=== PATIENT | male | born 2000 | race Caucasian/White ===

== ENCOUNTER 2024-10-12 23:01 | Emergency (ER) | payer SELFPAY ==
[2024-10-12 23:25] VITALS: BP 143/87; PULSE 89; TEMP 36.9; O2SAT 99; BMI 33.0
--- NOTE | 2024-10-12 23:33 | ED.LOWEXI1 ---
HPI HPI - Extremity Injury (Lower) General Chief Complaint: Extremity Injury, Lower Stated Complaint: LE PAIN Time Seen by Provider: 10/12/24 23:29 Source: patient Mode of arrival: Wheelchair Limitations: no limitations History of Present Illness HPI Narrative: states he was walking about an hour ago and twist his left ankle. Was able to catch himself to prevent him from falling . Presents with ankle pain. States he is suppose to wear braces on his ankles but was not wearing them Related Data Home Medications �Medication �Instructions �Recorded �Confirmed No Known Home Medications 10/12/24 10/12/24 Allergies Allergy/AdvReac Type Severity Reaction Status Date / Time No Known Drug Allergies Allergy Verified 10/12/24 23:28 Opioid HPI Opioid Management Most Recent Pain and Opioid Data: Last Pain Scale 10 Today, 00:00 Last ED Pain Assessment 10/12/24, 23:40 Last MAR Pain Assessment Today, 00:00 Review of Systems ROS Status of ROS 10 or more systems reviewed and unremarkable except as noted in history and below [facility] Medical History (Updated 10/13/24 @ 00:24 by Jorge Wilkins MD) Asthma �J45.909 - Unspecified asthma, uncomplicated (ICD-10) Social History Little interest or pleasure in doing things: not at all Feeling down, depressed, or hopeless: not at all Exam Constitutional Vital Signs, click to edit/add: Last Vital Signs Temp 98.5 F 10/12/24 23:25 Pulse 89 10/12/24 23:25 Resp 16 10/12/24 23:25 BP 143/87 H 10/12/24 23:25 Pulse Ox 99 10/12/24 23:25 O2 Del Method Room Air 10/12/24 23:25 Common normals: no apparent distress, average body habitus, oriented x3, no limitations, healthy appearing and alert [facility] Common normals: normocephalic and head/scalp atraumatic Respiratory Common normals: normal respiratory effort, no retractions, no use of accessory muscles and clear to auscultation bilaterally Cardio Common normals: regular rate, regular rhythm, S1 normal heart sound and S2 normal heart sound Extremity Extremity image (front):  1. tender with mild swelling Neuro Common normals: oriented x3, CN's II-XII intact bilaterally, moves all extremities and no focal motor deficits Psych Appearance: grossly normal Course Vital Signs Vital signs: Vital Signs Temperature 98.5 F 10/12/24 23:25 Pulse Rate 89 10/12/24 23:25 Respiratory Rate 16 10/12/24 23:25 Blood Pressure 143/87 H 10/12/24 23:25 Pulse Oximetry 99 10/12/24 23:25 Oxygen Delivery Method Room Air 10/12/24 23:25 Temperature 98.5 F 10/12/24 23:25 Pulse Rate 89 10/12/24 23:25 Respiratory Rate 16 10/12/24 23:25 Blood Pressure 143/87 H 10/12/24 23:25 Pulse Oximetry 99 10/12/24 23:25 Oxygen Delivery Method Room Air 10/12/24 23:25 MDM - Extremity Injury (Lower) MDM Narrative Medical decision making narrative: patient walking and twisted his left ankle. Is suppose to wear a brace to support his ankles but non compliant. Mild swelling of the ankle. xray left ankle and foot per my preliminary review is neg. patient placed in CAM boot and crutches and discharged home Discharge Plan Discharge Chief Complaint: Extremity Injury, Lower Clinical Impression: Ankle sprain and strain Patient Disposition: Home, Self-Care Prescriptions / Home Meds: No Action No Known Home Medications Print Language: Panamanian Instructions: Ankle Strain (ED) Additional Instructions: follow up with your doctor for recheck next week. Use ibuprofen or similar for pain Referrals: Physician,Non-Staff, MD [Primary Care Provider] - 1 week
[2024-10-13] MEDS: IBUPROFEN 400 MG TABLET 800 MG PO
== END 2024-10-13 00:38 | disposition home or self-care (01) ==
PROVIDERS: Emergency Provider Internal Medicine
DX: S93.402A Sprain of unspecified ligament of left ankle, initial encounter (principal); S96.912A Strain of unspecified muscle and tendon at ankle and foot level, left foot, initial encounter; X50.1XXA Overexertion from prolonged static or awkward postures, initial encounter; Z91.199 Patient's noncompliance with other medical treatment and regimen due to unspecified reason
CPT/HCPCS: 73610; 73630; 99283

== ENCOUNTER 2024-10-25 21:22 | Emergency (ER) | payer SELFPAY ==
[2024-10-25 21:25] VITALS: BP 144/74; PULSE 70; TEMP 36.9; O2SAT 100; BMI 33.2
--- NOTE | 2024-10-25 21:35 | XR_ITS ---
[facility] [place] [address] Patient Name: ANNEL CHAVES MRN: [id number] date: 2000 Sex: M Assigned Patient Location: ER Current Patient Location: ER Accession/Order Number: [id number] Exam Date: 10/25/2024 22:08 Report Date: 10/25/2024 22:09 At the request of: VON FAULKNER Procedure: XR wrist LT min 3V XR wrist LT min 3V 10/25/2024 9:50 PM SIGNS AND SYMPTOMS: ^fall, left wrist injury and pain PROTOCOL: Frontal, lateral, and oblique radiographs of the left wrist COMPARISON: None FINDINGS: The bones are in anatomic alignment. There is no evidence of acute displaced fracture. No soft tissue swelling. Radiocarpal joint and carpal rows are preserved. XR/XR wrist LT min 3V IMPRESSION: No fracture. Impression dictated by: Saud Arzate M.D. 10/25/2024 10:09 PM Dictation Location: [place] [address] Electronically authenticated by: [id number] Y Date: 10/25/2024 22:09
[2024-10-25] MEDS: IBUPROFEN 400 MG TABLET 800 MG PO (21:54)
--- NOTE | 2024-10-25 22:11 | ED.UPPEXIN1 ---
HPI HPI - Extremity Injury (Upper) General Chief Complaint: Extremity Injury, Upper Stated Complaint: LEFT WRIST HURTS Time Seen by Provider: 10/25/24 21:28 Source: patient Mode of arrival: walk-in Limitations: no limitations History of Present Illness HPI narrative: cc - left wrist injury Pt fell and tried to use his left wrist to break the fall. He complains of pain throughout the left wrist joint. No meds taken prior to arrival - this just occurred. No left shoulder, upper arm, elbow, forearm or hand pain. No injury to the head, neck , torso or any other extremities. Related Data Home Medications ?Medication ?Instructions ?Recorded ?Confirmed No Known Home Medications 10/12/24 10/25/24 Allergies Allergy/AdvReac Type Severity Reaction Status Date / Time No Known Drug Allergies Allergy Verified 10/25/24 21:30 Opioid HPI Opioid Management Most Recent Pain and Opioid Data: Last Pain Scale 10 Today, 21:54 Last MAR Pain Assessment Today, 21:54 [facility] Medical History (Updated 10/25/24 @ 22:14 by Titus Hart) Asthma ?J45.909 - Unspecified asthma, uncomplicated (ICD-10) Social History Little interest or pleasure in doing things: not at all Feeling down, depressed, or hopeless: not at all Exam Narrative Exam Narrative: Nurses note and vital signs reviewed and patient is not hypoxic. afebrile General: The patient appears well and in no apparent distress. Patient is resting comfortably on cart. GCS = 15. Skin: Warm, dry, no pallor noted. Cardiovascular: Normal peripheral perfusion Respiratory: Patient is in no distress, no accessory muscle use, no wheezing or increased work of breathing Musculoskeletal: Tenderness throughout the left wrist joint. No swelling is noted. He has normal range of motion of the fingers of the left hand. The remainder the left upper extremity is normal. no additional sign of long bone fracture. Neurological: A&O x4, normal equal tare weigher strength, normal finger to nose, normal speech, normal coordination, normal motor, normal sensory. Psychiatric: Cooperative Constitutional Vital Signs, click to edit/add: Last Vital Signs Temp 98.4 F 10/25/24 21:25 Pulse 70 10/25/24 21:25 Resp 20 10/25/24 21:25 BP 144/74 H 10/25/24 21:25 Pulse Ox 100 10/25/24 21:25 O2 Del Method Room Air 10/25/24 21:25 Course Vital Signs Vital signs: Vital Signs Temperature 98.4 F 10/25/24 21:25 Pulse Rate 70 10/25/24 21:25 Respiratory Rate 20 10/25/24 21:25 Blood Pressure 144/74 H 10/25/24 21:25 Pulse Oximetry 100 10/25/24 21:25 Oxygen Delivery Method Room Air 10/25/24 21:25 Temperature 98.4 F 10/25/24 21:25 Pulse Rate 70 10/25/24 21:25 Respiratory Rate 20 10/25/24 21:25 Blood Pressure 144/74 H 10/25/24 21:25 Pulse Oximetry 100 10/25/24 21:25 Oxygen Delivery Method Room Air 10/25/24 21:25 MDM - Extremity Injury (Upper) MDM Narrative Medical decision making narrative: Patient was given Motrin for pain and x-rays of the left wrist were obtained. No fracture or dislocation was identified. Patient was informed of negative results and given reassurance. ED nurse was asked to apply an Phuc wrap to the patient's left wrist. Imaging Data xr left wrist: Attestation: I personally reviewed and interpreted this imaging study as follows: My impression: No acute fracture Radiologist's impression: ITS Impressions Wrist X-Ray 10/25/24 21:35 IMPRESSION: No fracture. Impression dictated by: Saud Arzate M.D. 10/25/2024 10:09 PM Dictation Location: [place] [address] Electronically authenticated by: [id number] Y Date: 10/25/2024 22:09 Discharge Plan Discharge Chief Complaint: Extremity Injury, Upper Clinical Impression: Sprain and strain of wrist Patient Disposition: Home, Self-Care Time of Disposition Decision: 22:14 Prescriptions / Home Meds: No Action No Known Home Medications Print Language: Comoran Instructions: Wrist Sprain (ED) Referrals: Physician,Non-Staff, MD [Primary Care Provider] - 1 week
== END 2024-10-25 22:32 | disposition home or self-care (01) ==
PROVIDERS: Emergency Provider Emergency Medicine
DX: S63.502A Unspecified sprain of left wrist, initial encounter (principal); S66.912A Strain of unspecified muscle, fascia and tendon at wrist and hand level, left hand, initial encounter; W19.XXXA Unspecified fall, initial encounter
CPT/HCPCS: 73110; 99283

== ENCOUNTER 2024-12-18 14:41 | Emergency (ER) | payer SELFPAY ==
[2024-12-18 15:09] VITALS: BP 128/72; PULSE 100; TEMP 37.7; O2SAT 100; BMI 33.2
[2024-12-18 15:39] LABS: SARS-CoV-2 Ag NEGATIVE (NEGATIVE)
--- NOTE | 2024-12-18 17:31 | ED_ITS ---
HPI - Fever General Chief Complaint: Fever Stated Complaint: FEVER SORE THROAT WEAKNESS Time Seen by Provider: 12/18/24 16:29 Source: patient Mode of arrival: walk-in Limitations: no limitations History of Present Illness HPI Narrative: 24-year-old male presents to the ED with sore throat and fever for approximately 5 days. He reports painful swallowing, though he is attempting to eat and drink normally. No chest pain, shortness of breath, abdominal pain, lightheadedness, or dizziness. He reports generalized body aches and weakness. Fever has been up to 101?F at home; measured at 99.9?F in the ED. He has been taking [id number] cold/flu medications. Potential exposure to ill contacts at work ([employer]), but no close family contacts Related Data Home Medications ?Medication ?Instructions ?Recorded ?Confirmed [id number] .ROUTE 12/18/24 Previous Rx's ?Medication ?Instructions ?Recorded amoxicillin 875 mg tablet 875 mg PO BID 10 days #20 ta bs 12/18/24 Allergies Allergy/AdvReac Type Severity Reaction Status Date / Time No Known Drug Allergies Allergy Verified 12/18/24 15:07 [facility] Medical History (Updated 12/18/24 @ 17:58 by RAQUEL KINNEY) Asthma ?J45.909 - Unspecified asthma, uncomplicated (ICD-10) Social History Little interest or pleasure in doing things: not at all Feeling down, depressed, or hopeless: not at all Exam Narrative Exam Narrative: General: Ill-appearing but not acutely toxic. Vital Signs: Febrile 99.9?F, tachycardic; otherwise stable. HEENT: Pharynx very erythematous with exudative tonsils, no unilateral swelling or uvular shift. Oral mucosa moist. Neck: Cervical lymphadenopathy noted. no nuchal rigidity Cardiac: Tachycardic, regular rhythm, no murmurs. Respiratory: Lungs clear to auscultation, no wheezing or crackles. Abdomen: Soft, non-tender, no rebound or guarding. Extremities / Perfusion: Capillary refill normal. Neuro / Mental Status: Alert, oriented, normal mental status. Constitutional Vital Signs, click to edit/add: Last Vital Signs Temp 99.9 F 12/18/24 15:09 Pulse 100 H 12/18/24 15:09 Resp 16 12/18/24 15:09 BP 128/72 12/18/24 15:09 Pulse Ox 100 12/18/24 15:09 O2 Del Method Room Air 12/18/24 15:09 Course Vital Signs Vital signs: Vital Signs Temperature 99.9 F 12/18/24 15:09 Pulse Rate 100 H 12/18/24 15:09 Respiratory Rate 16 12/18/24 15:09 Blood Pressure 128/72 12/18/24 15:09 Pulse Oximetry 100 12/18/24 15:09 Oxygen Delivery Method Room Air 12/18/24 15:09 Temperature 99.9 F 12/18/24 15:09 Pulse Rate 100 H 12/18/24 15:09 Respiratory Rate 16 12/18/24 15:09 Blood Pressure 128/72 12/18/24 15:09 Pulse Oximetry 100 12/18/24 15:09 Oxygen Delivery Method Room Air 12/18/24 15:09 MDM - Fever MDM Narrative Medical decision making narrative: 24-year-old male presents with 5-day history of sore throat, fever, and exudative tonsillitis. Exam notable for erythematous pharynx with exudate and cervical lymphadenopathy, without uvular shift or unilateral swelling. Labs show negative rapid strep, negative monospot, normal WBC, and negative COVID-19 and influenza tests. Despite negative rapid strep, given clinical presentation and Centor criteria, empiric treatment for bacterial pharyngitis is reasonable. Amoxicillin 875 mg PO BID x10 days prescribed, and throat culture sent for confirmation. Supportive care with fluids, antipyretics, and rest recommended. Return precautions provided for worsening pain, inability to swallow, difficulty breathing, or new symptoms. Patient tolerating PO prior to DC, work note given. Understands all return to ED precautions. Differential Diagnosis Differential diagnosis: Likely influenza and other Medical Records Attestation: I reviewed the patient's medical records. Lab Data Attestation: I reviewed the patient's lab results. Labs: Lab Results 12/18/24 12/18/24 Range/Units 15:15 17:15 WBC 7.2 (4.0-11.0) 10^3/uL RBC 5.34 (4.70-6.10) 10^6/uL Hgb 14.5 (14.0-18.0) g/dL Hct 44.2 (42.0-54.0) % MCV 82.8 (80.0-94.0) fL MCH 27.2 (25.9-34.0) pg MCHC 32.8 (29.9-35.2) g/dL RDW 13.0 (11.0-15.0) % Plt Count 240 (150-450) 10^3/uL MPV 9.7 (9.5-13.5) fL Neut % (Auto) 71.3 (43.0-75.0) % Lymph % (Auto) 13.8 L (20.5-60.0) % [place] % (Auto) 13.0 H (1.7-12.0) % Eos % (Auto) 0.6 L (0.9-7.0) % Baso % (Auto) 0.6 (0.2-2.0) % Neut # (Auto) 5.2 (1.4-6.5) 10^3/uL Lymph # (Auto) 1.0 L (1.2-3.8) 10^3/uL [place] # (Auto) 0.9 H (0.3-0.8) 10^3/uL Eos # (Auto) 0.0 (0.0-0.7) 10^3/uL Baso # (Auto) 0.0 (0.0-0.1) 10^3/uL Abs Immat Gran (auto) 0.05 H (0.00-0.03) 10^3/uL Imm/Tot Granulo (auto) 0.7 H (0.0-0.5) % Sodium 138 (136-145) mmol/L Potassium 3.6 (3.5-5.1) mmol/L Chloride 101 (98-107) mmol/L Carbon Dioxide 26.3 (21.0-32.0) mmol/L Anion Gap 14.3 BUN 11.0 (7.0-18.0) mg/dL Creatinine 0.84 (0.70-1.30) mg/dL Est GFR ( Amer) >60 (>=60 mL/min/1.73m^2) Est GFR (Non-Af Amer) >60 (>=60 mL/min/1.73m^2) BUN/Creatinine Ratio 13.1 Glucose 79 (74-106) mg/dL Calcium 8.7 (8.5-10.1) mg/dL Total Bilirubin 1.3 H (0.2-1.0) mg/dL AST 14 L (15-37) U/L ALT 28 (16-63) U/L Alkaline Phosphatase 64 (46-116) U/L Total Protein 7.7 (6.4-8.2) g/dL Albumin 3.8 (3.4-5.0) g/dL Globulin 3.9 g/dL Albumin/Globulin Ratio 1.0 Monoscreen Negative (NEGATIVE) Influenza Type A Ag Negative Influenza Type B Ag Negative SARS-CoV-2 Ag (CV2AG) Negative (NEGATIVE) Streptococcus Screen Negative Discharge Plan Discharge Stand Alone Forms: Work/School Release Chief Complaint: Fever Clinical Impression: Acute infective tonsillitis Patient Disposition: Home, Self-Care Time of Disposition Decision: 17:58 Condition: Good Prescriptions / Home Meds: New amoxicillin 875 mg tablet 875 mg PO BID 10 Days Qty: 20 0RF No Action [id number] [Cold and Flu Medicine] .ROUTE Print Language: Portuguese Instructions: Tonsillitis (ED) Additional Instructions: Treatment: * Take amoxicillin 875 mg by mouth twice daily for 10 days. * Finish the entire antibiotic course even if you start feeling better. Home Care: * Drink plenty of fluids to stay hydrated. * Use warm salt water gargles or throat lozenges for comfort. * Take Tylenol (acetaminophen) or ibuprofen as needed for fever or pain, following dosing instructions. * Rest as much as possible. Follow-Up: * We have sent a throat culture to confirm the diagnosis. If results require a change in your treatment, we will contact you. * Follow up with your primary care provider if your symptoms are not improving in a few days. Return to the ER or Seek Medical Care Right Away If: * You have trouble breathing or swallowing. * You develop swelling on one side of your throat, drooling, or muffled voice. * You have persistent fever above 101.5?F that does not improve with medication. * You cannot keep fluids down or become very weak. Referrals: Physician,Non-Staff, MD [Primary Care Provider] - 1 week
[2024-12-18 17:42] LABS: Hematocrit 44.2 % (42.0-54.0); Hemoglobin 14.5 g/dL (14.0-18.0); Immature Granulocytes Abs Auto 0.05 10^3/uL (0.00-0.03); Immature Granulocytes Pct Auto 0.7 % (0.0-0.5); Lymphocytes Absolute Auto 1.0 10^3/uL (1.2-3.8); Mean Corpuscular HGB Conc 32.8 g/dL (29.9-35.2); Mean Corpuscular Hemoglobin 27.2 pg (25.9-34.0); Mean Corpuscular Volume 82.8 fL (80.0-94.0); Platelet Count 240 10^3/uL (150-450); Red Blood Count 5.34 10^6/uL (4.70-6.10); White Blood Count 7.2 10^3/uL (4.0-11.0)
[2024-12-18 17:49] LABS: Alanine Aminotransferase 28 U/L (16-63); Albumin Globulin Ratio 1.0; Albumin Level 3.8 g/dL (3.4-5.0); Alkaline Phosphatase 64 U/L (46-116); Anion Gap 14.3; Aspartate Amino Transferase 14 U/L (15-37); Blood Urea Nitrogen 11.0 mg/dL (7.0-18.0); Calcium 8.7 mg/dL (8.5-10.1); Carbon Dioxide 26.3 mmol/L (21.0-32.0); Chloride 101 mmol/L (98-107); Estimated GFR (African America >60 (>=60 mL/min/1.73m^2); Estimated GFR (Non-African Ame >60 (>=60 mL/min/1.73m^2); Globulin 3.9 g/dL; Glucose 79 mg/dL (74-106); Potassium 3.6 mmol/L (3.5-5.1); Sodium 138 mmol/L (136-145); Total Protein 7.7 g/dL (6.4-8.2)
[2024-12-18 17:50] LABS: Mono Screen NEGATIVE (NEGATIVE)
[2024-12-18] MEDS: ACETAMINOPHEN 500 MG TABLET 1000 MG PO (19:00)
== END 2024-12-18 19:00 | disposition home or self-care (01) ==
PROVIDERS: Physician Assistant; Emergency Provider Emergency Medicine
DX: J03.90 Acute tonsillitis, unspecified (principal); R50.9 Fever, unspecified
CPT/HCPCS: 36415; 80053; 85025; 86308; 87070; 87077; 87186; 87804; 87811; 87880; 99285

== ENCOUNTER 2024-12-29 23:08 | Emergency (ER) | payer SELFPAY ==
--- OUTSIDE RECORDS SUMMARY | 2024-12-19 06:00 | XMS_ITS ---
Author Organization [facility] Servic es Address [address] [place] [address] Care Team Providers Care Nicking Machine Operator Name Role Phone Loraine Abdullahi Primary Care Provider Allergies No Known Allergies REASON FOR VISIT Pt is a 24 year old male to female transgender, Consult - Adult; depression, Pt states he is here to get back on medication for Depression, it's been about 2 years, LM Medications Medication SIG (Take, Route, Fr equency, Duration) Notes Start Date End Date Status Wellbutrin XL 150 MG 1 tablet in the mor cynthia Orally Once a day; Duration: 30 days 12/19/2024 Ac tive Social History Tobacco Use: Social History Observation Description Date Details (start date - stop date) Former Smoker NA - 11/18/2024 DAST-10 (2020 Edition) Question Answer Notes 1. Have you used drugs other than those required for medical reasons? No 2. Do you abuse more than one drug at a time? No 3. Are you always able to st op using drugs when you want to? Yes 4. Have you had blackouts or flashbacks as a result of drug use? No 5. Do you ever feel bad or guilty about your shweta g use? No 6. Does your spouse (or pare nts) ever complain about your involvement with drugs? No 7. Have you neglected your f amily because of your use of drugs? No 8. Have you engaged in illeg al activities in order to obtain drugs? No 9. Have you ever experienced withdrawal symptoms (felt sick) when you stopped taking drugs? No 10. Have you had medical pro blems as a result of your drug use (e.g., memory loss, hepatitis, convulsions, bleeding etc.)? No Results: 0 Interpretation of Score: No problems reported AUDIT-C (Standard) Question Answer Notes Did you have a drink containing alcohol in the p ast year? No Points 0 Interpretation Negative Tobacco Control (Standard) Question Answer Notes Tobacco use: Former smoker When did you stop smoking? 11/18/2024 How long has it been since y ou last smoked? 1-3 months Additional Findings: Tobacco user e-ciga rette,Light cigarette smoker (1-9 cigs/day) Additional Findings: Tobacco non-user Ex-light c igarette smoker (1-9/day) Vital Signs Height 71 in 12/19/2024 Weight 253.8 lbs 12/19/2024 BMI 35.39 kg/m2 12/19/2024 Temperature 97.5 degrees Fahrenheit 12/20/19 25 Blood pressure systolic 132 mm Hg 12/20/19 25 Blood pressure diastolic 82 mm Hg 025 Oximetry 107 % 12/19/2024 Heart Rate 92 /min 12/19/2024 Encounters Encounter Location Date Provider Diagnosis [address] [address] 12/19/2024 Loraine Abdullahi Depression, unspe cified depression type F32.A Assessments Encounter Date Diagnosis (ICD Code) Assessment Notes Treatment Notes Treatment Clinical Notes Section Notes 12/19/2024 Depression, unspecified depression type (ICD-10 - F32.A) Will start patient on *Wellbutrin XL 150mg daily today. Discussed risks and side effects of medication including possible nausea, headache, upset stomach, diarrhea, constipation, anxiety, irritability, and sexual dysfunction. Most mild side effects improve over 4-6 weeks of use. Please monitor for worsening of symptoms, especially suicidal ideations or morbid thoughts, and call office and or go to the emergency department immediately if this occurs. Patient verbalized understanding, in agreement with plan. f/u in 1 month and PRN Plan Of Treatment Medication Medication Name Sig Start Date Stop Date Notes Wellbutrin XL 150 MG 1 tablet in the mor cynthia Orally Once a day; Duration: 30 days 12/19/2024 Treatment Notes Assessment Notes Depression, unspecified depression type Will start patient on *Wellbutrin XL 150mg daily today. Discussed risks and side effects of medication including possible nausea, headache, upset stomach, diarrhea, constipation, anxiety, irritability, and sexual dysfunction. Most mild side effects improve over 4-6 weeks of use. Please monitor for worsening of symptoms, especially suicidal ideations or morbid thoughts, and call office and or go to the emergency department immediately if this occurs. Patient verbalized understanding, in agreement with plan. f/u in 1 month and PRN Next Appt Details Follow Up: 4 Weeks, Reason: BH f/u Provider Name:Loraine hudson, 01/16/2025 11:00:00 AM, [address] [place] [address], [id number], Progress Notes * ANDIE DOEELVIAENDOB:2000 (24 yo M)Acc No.[id number]:12/19/2024 Behavioral Health Patient: ANNEL HOPSON Provider: Britton Abdullahi CNP :2000 A ge:24 Y S ex:Male(T) Date:12/19/2024 Address:[address] [place] [address], [id number] Subjective: * Chief Complaints: * P t is a 24 year old male to female transgender, Consult - Adult; depressionPt states he is here to get back on medication for Depression, it's been about 2 yearsLM * HPI: C onstitutional: Patient presents to the office today for new mental health assessment for depression. She states she has tried Prozac in the past she felt like a zombie, all the emotions went away and was just there so she stopped taking it. SHe states she will eat alot of over eating when more depressed. She states she gets really irritable easily. Got good grades in high school with online school. Was raised by Maternal grandparents. Recently moved to [place] from [place] with signficant other that is from [place]. Working PT currently. PYSCHIATRIC HISTORY: Psychiatrist:denies Therapist:yes Past Diagnosis:Depression Past Medications:unsure Hospitalizations:yes Self injurious behaviors:yes Suicide Attempts:yes Drug/Alcohol Rehab:denies . FAMILY HX OF MENTAL DISORDERS: Mom -denies Dad -unsure First and second degree relatives, maternal and paternal sides: Family hx of suicide?denies Family hx of epilepsy?deneis . SUBSTANCE DISORDERS:Mom is a Drug Addict of meth , Maternal Grandmother ETOH . LEGAL HX: Arrests:denies DUI:denies Probation:denies Violent to others:denies Bankruptcy:denies Other legal issues:denies . HX OF ABUSE:Physical, Verbal, Emotional Hx of abuse or neglect:denies Witness to abuse:denies Reported to:n/a . SOCIAL HX: Born in:[place], [place] Raised in:[place] Currently resides in:[place] Who lives with you:2 roommates Siblings:denies Half-siblings:2 Step-siblings:denies order:n/a Patient was raised by:Grandparents Parental relationship:good Patient's childhood was described as:hard to remember . DEVELOPMENTAL HX: Type of delivery:Vaginal Term:unsure Problems at :denies Smoking/alcohol/drug use with :denies Met developmental milestones:yes Speech delays:denies . EDUCATION/ HX: Highest grade completed:12 grade Graduated from:[employer]:denies Problems in school:denies School activities:Tennis IEP:denies . EMPLOYMENT: Currently employed:[employer] How lon months Longest job held:1 year Source of income:employment Difficulty holding a job:yes Receiving disability:denies . MARITAL HX: Martial status:Single # of marriages: How long did marriage last: Age at time marriage: Describe relationship with spouse/partner: Reason for divorce: Sexual orientation:Transgender Age became sexually active:20 # of sexual partners:3-4. * ROS: D epression: Pt DOES ENDORSE episodes of mood fluctuation lasting 2 weeks or more of pervasive sadness, anhedonia, low self-esteem, crying spells, hyper somnolence, change in appetite, poor concentration, psychomotor retardation, fatigue, feelings of worthlessness and excessive guilt, feelings of hopelessness and helplessness, decreased sex drive, has had passive morbid thoughts, no previous attempts, has support system in place. . Reian/Hypomania: Pt DOES ENDORSE episodes of elevated mood and or persistent irritability for at least 1week and during these episodes has had decreased need for sleep, outbursts of energy with increased psychomotor activity; racing thoughts/flight of ideas, increased in goal directed activity, distractibility, has pressure to keep talking, sexual preoccupation; risky behaviors including excessive spending. Denies experiencing psychotic features. . Anxiety: Pt DOES ENDORSE having excessive worry and difficulty controlling worry or generalized apprehensive expectation in the last 6 months. Symptoms associated include elevated heart rate, restlessness, chest pain, muscle tension in neck and shoulders. Anxiety is associated with unstable mood episodes. . Panic Attacks: DOES ENDORSE having unexpected episodes of palpitations, diaphoresis, shaking, SOB, choking sensation, chest pain, nausea lightheadedness, derealization, fear of dying or going crazy, or chills or hot flashes. No Agoraphobia. . PTSD: Reports history of trauma or traumatic stress reported. Does not endorse having experienced a traumatic event which has caused occurrences of hypervigilance, feeling hyper-alert, increased startle response, intrusive thoughts, nightmares, flashbacks, avoidance; agoraphobia. c/o physical, verbal and emotional abuse. . Social phobia: DOES ENDORSE having symptoms of unrealistic fear of embarrassing or humiliating self, scrutinized by others, anxious to others not well known, avoidance of social situations. . OCD: reports current or past history of obsessive thoughts, compulsive behaviors reported. Does not endorse having obsessive thoughts or compulsive behaviors experienced for a duration of time or that interrupts daily life. c/o nail biting, chew inside of cheek, checking light switches and checking locked doors. . Psychosis: Denies having delusions, visual and auditory hallucinations, thought insertion, thought broadcasting, paranoia. No evidence of thought disorder. . ADHD: DOES meet criteria for Attention Deficit Hyperactivity Disorder, Distractibility and Psychomotor agitation are mood symptoms. Will address mood disorder then if symptoms persist with re-assess ADHD symptoms. ADHD predominantly inattentive presentation Fails to give close attention to details yes makes careless mistakes yes Has difficulty sustaining attention yes Does not appear to listen yes Struggles to follow through with instructions yes Has difficulty with organization depends Avoids or dislikes tasks requiring sustained mental effort yes Loses things yes, glasses and car keys all the time Is easily distracted yes Is forgetful in daily activities yes ADHD predominantly hyperactive-impulsive presentation Fidgets with hands or feet or squirms in chair yes Has difficulty remaining seated yes Runs about or climbs excessively in children; yes Difficulty engaging in activities quietly no Talks excessively yes Oversharing- yes Blurts out answers before questions have been completed yes Difficulty waiting or taking turns yes Interrupts or intrudes upon others yes . Eating Disorder: See HPI. Not pervasive and not independent of mood episodes . Suicidal Ideations: Patient denies the presence of suicidal thoughts. The patient also denies the presence of suicidal plan . Patient has a strong support system. Patient provided a phone number for a crisis hotline. . Self-harm: patient denies the presence of self harm behaviors. has had in the past . Homicidal ideation: Patient denies the presence of homicidal ideations . * Medical History: * Surgical History: N o Surgical History documented. * [facility] * Family History: F ather: alive. M other: alive. * Social History: D rug/Alcohol: D AST-10 (2020 Edition) 1 . Have you used drugs other than those required for medical reasons? N o 2 . Do you abuse more than one drug at a time??No 3 . Are you always able to stop using drugs when you want to? Y es 4 . Have you had blackouts or flashbacks as a result of drug use? N o 5 . Do you ever feel bad or guilty about your drug use? N o 6 . Does your spouse (or parents) ever complain about your involvement with drugs? N o 7 . Have you neglected your family because of your use of drugs? N o 8 . Have you engaged in illegal activities in order to obtain drugs? N o 9 . Have you ever experienced withdrawal symptoms (felt sick) when you stopped taking drugs? N o 1 0. Have you had medical problems as a result of your drug use (e.g., memory loss, hepatitis, convulsions, bleeding etc.)? N o R esults: 0 I nterpretation of Score: N o problems reported AUDIT-C (Standard) D id you have a drink containing alcohol in the past year? N o P oints 0 I nterpretation N egative T obacco Use: T obacco Control (Standard) T obacco use: F ormer smoker W hen did you stop smoking? 0 11/18/2024 H ow long has it been since you last smoked??1-3 months A dditional Findings: Tobacco user e -cigarette,Light cigarette smoker (1-9 cigs/day) A dditional Findings: Tobacco non-user E x-light cigarette smoker (1-9/day) * Medications: N one * Allergies: N .K.D.A.no[Allergies Verified] Objective: * Vitals: H t: 71 in, Wt: 253.8 lbs, BMI:35.39Index, Temp: 97.5 F, BP: 132/82 mm Hg, SaO2:107%, HR: 92 /min. * Examination: G eneral Examination: . AIMS EXAM: . AIMS Muscles of Facial Expression: None AIMS Lips and Perioral Area: None AIMS Jaw Area Involuntary Movements: None AIMS Tongue Involuntary Movements: None AIMS Upper Arms, Wrists, Hands, Fingers: None AIMS Lower Legs, Knees, Ankles, Toes: None AIMS Overall Abnormal Movement Severity: None AIMS Incapacitation Abnormal Movement: None AIMS Self Awareness of Abnormal Movement: Aware, None noted AIMS Current Teeth, Denture Problems: No AIMS Movements Disappear in Sleep: No . . MENTAL STATUS EXAM: . Appearance: Appropriately dressed and groomed, good eye contact, cooperative, pleasant Behavior/Motor Activity: Normal Gait/Station: Within normal limits BH Speech: Normal Mood: Good Affect: Full Thought processes/Associations: Logical and goal directed Thought Content: Non-psychotic Cognition/Attention/Memory/Concentration: Alert and oriented x 4; grossly intact attention; memory-recent/remote judged adequate by interviewer Insight: Good Judgement: Good language: Within normal limits Fund of Knowledge: Adequate . . Assessment: * Assessment: 1. D epression, unspecified depression type - F32.A Plan: * Treatment: * Procedure Codes: 3 079F DIAST BP 80-89 MM [id number] SYST BP GE 130 - 139MM [id number] RVW MEDS BY RX/DR IN [id number] NEW PSYCH DIAG EVAL W/MED SRVCS * Preventive Medicine: COUNSELING: P atient Primary Pharmacy Discussion Patient agrees to primary pharmacy being set to [facility] * Follow Up: 4 Weeks (Reason: BH f/u) Care Plan: * Problems: * Images: * Sign off status: Completed true * Provider: Britton Abdullahi, ALEAH Date: 0 12/19/2024 Generated for [employer] tamiko/Wen/eTransmitting on: 0 12/29/2024 11:21 PM EDT History and Physical Notes * HPI (History of Present Illness) Category Sub-Category Detail Notes Category Not es Constitutional Patient presents to the office today for new mental health assessment for depression. She states she has tried Prozac in the past she felt like a zombie, all the emotions went away and was just there so she stopped taking it. SHe states she will eat alot of over eating when more depressed. She states she gets really irritable easily. Got good grades in high school with online school. Was raised by Maternal grandparents. Recently moved to [place] from [place] with signficant other that is from [place]. Working PT currently. PYSCHIATRIC HISTORY: Psychiatrist:denies Therapist:yes Past Diagnosis:Depression Past Medications:unsure Hospitalizations:yes Self injurious behaviors:yes Suicide Attempts:yes Drug/Alcohol Rehab:denies . FAMILY HX OF MENTAL DISORDERS: Mom -denies Dad -unsure First and second degree relatives, maternal and paternal sides: Family hx of suicide?denies Family hx of epilepsy?deneis . SUBSTANCE DISORDERS:Mom is a Drug Addict of meth , Maternal Grandmother ETOH . LEGAL HX: Arrests:denies DUI:denies Probation:denies Violent to others:denies Bankruptcy:denies Other legal issues:denies . HX OF ABUSE:Physical, Verbal, Emotional Hx of abuse or neglect:denies Witness to abuse:denies Reported to:n/a . SOCIAL HX: Born in:[place], [place] Raised in:[place] Currently resides in:[place] Who lives with you:2 roommates Siblings:denies Half-siblings:2 Step-siblings:denies order:n/a Patient was raised by:Grandparents Parental relationship:good Patient's childhood was described as:hard to remember . DEVELOPMENTAL HX: Type of delivery:Vaginal Term:unsure Problems at :denies Smoking/alcohol/drug use with :denies Met developmental milestones:yes Speech delays:denies . EDUCATION/ HX: Highest grade completed:12 grade Graduated from:[employer]:denies Problems in school:denies School activities:[employer] IEP:denies . EMPLOYMENT: Currently employed:[employer] How lon months Longest job held:1 year Source of income:employment Difficulty holding a job:yes Receiving disability:denies . MARITAL HX: Martial status:Single # of marriages: How long did marriage last: Age at time marriage: Describe relationship with spouse/partner: Reason for divorce: Sexual orientation:Transgender Age became sexually active:20 # of sexual partners:3-4 Examination Category Sub-Category Detail Notes Category Not es General Examination . AIMS EXAM: . AIMS Muscles of Facial Expression: None AIMS Lips and Perioral Area: None AIMS Jaw Area Involuntary Movements: None AIMS Tongue Involuntary Movements: None AIMS Upper Arms, Wrists, Hands, Fingers: None AIMS Lower Legs, Knees, Ankles, Toes: None AIMS Overall Abnormal Movement Severity: None AIMS Incapacitation Abnormal Movement: None AIMS Self Awareness of Abnormal Movement: Aware, None noted AIMS Current Teeth, Denture Problems: No AIMS Movements Disappear in Sleep: No . . MENTAL STATUS EXAM: . Appearance: Appropriately dressed and groomed, good eye contact, cooperative, pleasant Behavior/Motor Activity: Normal Gait/Station: Within normal limits Speech: Normal Mood: Good Affect: Full Thought processes/Associations: Logical and goal directed Thought Content: Non-psychotic Cognition/Attention/Memory/Con centration: Alert and oriented x 4; grossly intact attention; memory-recent/remote judged adequate by interviewer Insight: Good Judgement: Good language: Within normal limits Fund of Knowledge: Adequate .
[2024-12-29 23:13] VITALS: BP 144/82; PULSE 76; TEMP 37; O2SAT 97; BMI 33.9
--- NOTE | 2024-12-29 23:29 | ED_ITS ---
HPI HPI - General Adult General Chief complaint: Headache Stated complaint: Headache Time Seen by Provider: 12/29/24 23:19 Source: patient Mode of arrival: walk-in Limitations: no limitations History of Present Illness HPI narrative: cc Ivana I took too much tylenol Patient stated that he developed a headache around 3:00 today. He said that he took Tylenol for the headache but when it persisted he took additional Tylenol. He said that overall he has taken 10 Exer strength Tylenol between 3 PM this afternoon and 930 this evening. When he told his roommate, the remade told him to come to the ED to be evaluated. The patient states his headache is much improved and only minimal at this time. He describes it as a bitemporal headache that began while he was at work. It was not explosive or the worst of his life. No other symptoms such as visual change, nausea, vomiting, other complaints. He said he did not know the people could overdose from Tylenol Related Data Home Medications ?Medication ?Instructions ?Recorded ?Confirmed [id number] .ROUTE 12/18/24 Previous Rx's ?Medication ?Instructions ?Recorded amoxicillin 875 mg tablet 875 mg PO BID 10 days #20 ta bs 12/18/24 Allergies Allergy/AdvReac Type Severity Reaction Status Date / Time No Known Drug Allergies Allergy Verified 12/29/24 23:19 Opioid HPI Opioid Management Most Recent Opioid Data: Last Pain Scale 8 12/29/24, 23:22 [facility] Medical History (Updated 12/30/24 @ 03:30 by Titus Hart) Asthma ?J45.909 - Unspecified asthma, uncomplicated (ICD-10) Social History Little interest or pleasure in doing things: not at all Feeling down, depressed, or hopeless: not at all Exam Narrative Exam Narrative: Nurses notes and vital signs reviewed and patient is not hypoxic. afebrile General: Well-appearing and in no apparent distress. Skin: Warm, dry, no pallor noted. No rash. Head: Normocephalic, atraumatic. Neck: Supple, non-tender. No cervical lymphadenopathy. Eye: Pupils are equal, round and EOMI. No scleral icterus. Ears, Nose, Mouth, and Throat: Oral mucosa is moist Cardiovascular: Regular Rate and Rhythm without murmur, gallop or rub. Respiratory: No accessory muscle use or respiratory distress. Lungs are clear to auscultation, no wheezing, rales or rhonchi Musculoskeletal: normal ROM, no calf or popliteal tenderness, no lower extremity edema/swelling GI: Abdomen is soft, non-distended. Normal bowel sounds. No tenderness to palpation. No rebound, guarding, or rigidity noted. Neurological: A&O x4. No cranial nerve dysfunction observed. No truncal ataxia. Moves all extremities. Sensation intact. Psychiatric: Cooperative and interactive. Normal mood and affect. Constitutional Vital Signs, click to edit/add: Last Vital Signs Temp 98.6 F 12/29/24 23:13 Pulse 75 12/30/24 01:00 Resp 16 12/30/24 01:00 BP 127/75 12/30/24 01:00 Pulse Ox 100 12/30/24 01:00 O2 Del Method Room Air 12/30/24 01:00 Course Vital Signs Vital signs: Vital Signs Temperature 98.6 F 12/29/24 23:13 Pulse Rate 76 12/29/24 23:13 Respiratory Rate 18 12/29/24 23:13 Blood Pressure 144/82 H 12/29/24 23:13 Pulse Oximetry 97 12/29/24 23:13 Oxygen Delivery Method Room Air 12/29/24 23:13 Temperature 98.6 F 12/29/24 23:13 Pulse Rate 75 12/30/24 01:00 Respiratory Rate 16 12/30/24 01:00 Blood Pressure 127/75 12/30/24 01:00 Pulse Oximetry 100 12/30/24 01:00 Oxygen Delivery Method Room Air 12/30/24 01:00 Medical Decision Making MDM Narrative Medical decision making narrative: Blood drawn and sent for test including acetaminophen level. Acetaminophen level equal = 55.8. Patient will have a 4-hour redraw to determine whether or not the acetaminophen level is rising or has leveled off or even decreased. Repeat draw at 4 hours = 25.4 -- Trending downward Pt informed of results and was discharged home following discussion about approprate acetaminophen dosing and risk of serious injury and if overdosed Lab Data Lab results reviewed: Yes I reviewed the patient's lab results Labs: Lab Results 12/29/24 12/30/24 Range/Units 23:35 02:55 WBC 9.0 (4.0-11.0) 10^3/uL RBC 5.24 (4.70-6.10) 10^6/uL Hgb 14.1 (14.0-18.0) g/dL Hct 43.2 (42.0-54.0) % MCV 82.4 (80.0-94.0) fL MCH 26.9 (25.9-34.0) pg MCHC 32.6 (29.9-35.2) g/dL RDW 12.6 (11.0-15.0) % Plt Count 388 (150-450) 10^3/uL MPV 9.3 L (9.5-13.5) fL Neut % (Auto) 55.3 (43.0-75.0) % Lymph % (Auto) 30.8 (20.5-60.0) % [place] % (Auto) 8.9 (1.7-12.0) % Eos % (Auto) 2.9 (0.9-7.0) % Baso % (Auto) 1.1 (0.2-2.0) % Neut # (Auto) 5.0 (1.4-6.5) 10^3/uL Lymph # (Auto) 2.8 (1.2-3.8) 10^3/uL [place] # (Auto) 0.8 (0.3-0.8) 10^3/uL Eos # (Auto) 0.3 (0.0-0.7) 10^3/uL Baso # (Auto) 0.1 (0.0-0.1) 10^3/uL Abs Immat Gran (auto) 0.09 H (0.00-0.03) 10^3/uL Imm/Tot Granulo (auto) 1.0 H (0.0-0.5) % Sodium 142 (136-145) mmol/L Potassium 3.5 (3.5-5.1) mmol/L Chloride 106 (98-107) mmol/L Carbon Dioxide 28.9 (21.0-32.0) mmol/L Anion Gap 10.6 BUN 14.0 (7.0-18.0) mg/dL Creatinine 0.92 (0.70-1.30) mg/dL Est GFR ( Amer) >60 (>=60 mL/min/1.73m^2) Est GFR (Non-Af Amer) >60 (>=60 mL/min/1.73m^2) BUN/Creatinine Ratio 15.2 Glucose 103 (74-106) mg/dL Calcium 8.8 (8.5-10.1) mg/dL Total Bilirubin 1.0 (0.2-1.0) mg/dL AST 17 (15-37) U/L ALT 31 (16-63) U/L Alkaline Phosphatase 60 (46-116) U/L Total Protein 7.3 (6.4-8.2) g/dL Albumin 3.8 (3.4-5.0) g/dL Globulin 3.5 g/dL Albumin/Globulin Ratio 1.1 Acetaminophen 55.8 H 25.4 (10.0-30.0) ug/mL Discharge Plan Discharge Chief Complaint: Headache Clinical Impression: Headache, Acetaminophen toxicity Patient Disposition: Home, Self-Care Time of Disposition Decision: 03:30 Prescriptions / Home Meds: No Action [id number] [Cold and Flu Medicine] .ROUTE amoxicillin 875 mg tablet 875 mg PO BID 10 Days Qty: 20 0RF Print Language: Armenian Instructions: Acute Headache (ED) Referrals: Physician,Non-Staff, MD [Primary Care Provider] - 1 week
[2024-12-29 23:48] LABS: Hematocrit 43.2 % (42.0-54.0); Hemoglobin 14.1 g/dL (14.0-18.0); Immature Granulocytes Abs Auto 0.09 10^3/uL (0.00-0.03); Immature Granulocytes Pct Auto 1.0 % (0.0-0.5); Lymphocytes Absolute Auto 2.8 10^3/uL (1.2-3.8); Mean Corpuscular HGB Conc 32.6 g/dL (29.9-35.2); Mean Corpuscular Hemoglobin 26.9 pg (25.9-34.0); Mean Corpuscular Volume 82.4 fL (80.0-94.0); Platelet Count 388 10^3/uL (150-450); Red Blood Count 5.24 10^6/uL (4.70-6.10); White Blood Count 9.0 10^3/uL (4.0-11.0)
[2024-12-30 00:03] LABS: Acetaminophen 55.8 ug/mL (10.0-30.0); Alanine Aminotransferase 31 U/L (16-63); Albumin Globulin Ratio 1.1; Albumin Level 3.8 g/dL (3.4-5.0); Alkaline Phosphatase 60 U/L (46-116); Anion Gap 10.6; Aspartate Amino Transferase 17 U/L (15-37); Blood Urea Nitrogen 14.0 mg/dL (7.0-18.0); Calcium 8.8 mg/dL (8.5-10.1); Carbon Dioxide 28.9 mmol/L (21.0-32.0); Chloride 106 mmol/L (98-107); Estimated GFR (African America >60 (>=60 mL/min/1.73m^2); Estimated GFR (Non-African Ame >60 (>=60 mL/min/1.73m^2); Globulin 3.5 g/dL; Glucose 103 mg/dL (74-106); Potassium 3.5 mmol/L (3.5-5.1); Sodium 142 mmol/L (136-145); Total Protein 7.3 g/dL (6.4-8.2)
[2024-12-30 01:00] VITALS: BP 127/75; PULSE 75; O2SAT 100
[2024-12-30 03:14] LABS: Acetaminophen 25.4 ug/mL (10.0-30.0)
== END 2024-12-30 03:36 | disposition home or self-care (01) ==
PROVIDERS: Emergency Provider Emergency Medicine
DX: R51.9 Headache, unspecified (principal); T39.1X1A Poisoning by 4-Aminophenol derivatives, accidental (unintentional), initial encounter
CPT/HCPCS: 36415; 80053; 80329; 85025; 99283

== ENCOUNTER 2025-01-13 02:14 | Emergency (ER) | payer SELFPAY ==
[2025-01-13 02:18] VITALS: BP 153/94; PULSE 104; TEMP 36.6; O2SAT 98; BMI 34.9
--- NOTE | 2025-01-13 03:10 | ED_ITS ---
HPI HPI - General Adult General Chief complaint: Psychiatric Symptoms Stated complaint: Suicidal Time Seen by Provider: 01/13/25 02:20 Source: patient Mode of arrival: ambulance Limitations: other Limitations comment: intoxicated History of Present Illness HPI narrative: 24-year-old male presented to the emergency department by squad to be evaluated. He had been drinking alcohol tonight and got into an argument with his girlfriend and her friend. He told them you should just let me . No point that he threatened to kill himself and he has no thoughts of harming himself in any fashion. He did not do anything to hurt himself tonight. He states there might be some marijuana in his system and alcohol he drank tonight, otherwise no other drugs. He does not have any physical complaints. He regrets saying what he said. He is under the care of a psychiatrist and is on an antidepressant. He does not have any guns or weapons in the home. Related Data Home Medications ?Medication ?Instructions ?Recorded ?Confirmed [id number] .ROUTE 12/18/24 Previous Rx's ?Medication ?Instructions ?Recorded amoxicillin 875 mg tablet 875 mg PO BID 10 days #20 ta bs 12/18/24 Allergies Allergy/AdvReac Type Severity Reaction Status Date / Time No Known Drug Allergies Allergy Verified 12/29/24 23:19 Opioid HPI Opioid Management Most Recent Opioid Data: Last Pain Scale 8 12/29/24, 23:22 Review of Systems ROS Narrative A ten point review of systems is negative except as noted above. [facility] Medical History (Updated 01/13/25 @ 03:10 by Yoshi Barbosa MD) Asthma ?J45.909 - Unspecified asthma, uncomplicated (ICD-10) Social History Little interest or pleasure in doing things: several days Feeling down, depressed, or hopeless: several days Exam Narrative Exam Narrative: Nurses note and vital signs reviewed and patient is not hypoxic. General:The patient appears well and in no apparent distress.Patient is resting comfortably on cart. Skin:Warm, dry, no pallor noted.There is no rash noted. Head:Normocephalic, atraumatic Eye: Normal conjunctiva, no drainage Ears, Nose, Mouth, and Throat: oral mucosa is moist. Nares patent. Cardiovascular:Regular Rate and Rhythm Respiratory:Patient is in no distress, no accessory muscle use, lungs are clear to auscultation, no wheezing, rales or rhonchi Back:non-tender GI:Normal bowel sounds, no tenderness to palpation, no masses appreciated.No rebound, guarding, or rigidity noted. Musculoskeletal: The patient has no evidence of calf tenderness, no pitting edema, symmetrical pulses noted bilaterally Neurological:A&O x4, normal speech Psychiatric:Cooperative, appropriately interactive Constitutional Vital Signs, click to edit/add: Last Vital Signs Temp 97.9 F 01/13/25 02:18 Pulse 104 H 01/13/25 02:18 Resp 18 01/13/25 02:18 BP 153/94 H 01/13/25 02:18 Pulse Ox 98 01/13/25 02:18 O2 Del Method Room Air 01/13/25 02:18 Course Vital Signs Vital signs: Vital Signs Temperature 97.9 F 01/13/25 02:18 Pulse Rate 104 H 01/13/25 02:18 Respiratory Rate 18 01/13/25 02:18 Blood Pressure 153/94 H 01/13/25 02:18 Pulse Oximetry 98 01/13/25 02:18 Oxygen Delivery Method Room Air 01/13/25 02:18 Temperature 97.9 F 01/13/25 02:18 Pulse Rate 104 H 01/13/25 02:18 Respiratory Rate 18 01/13/25 02:18 Blood Pressure 153/94 H 01/13/25 02:18 Pulse Oximetry 98 01/13/25 02:18 Oxygen Delivery Method Room Air 01/13/25 02:18 Medical Decision Making MDM Narrative Medical decision making narrative: Patient is not suicidal and regrets saying what he said. He states he said it in the heat of the moment. There is no indication for any further workup. He was given the [facility] line phone number and will follow-up with his psychiatrist if needed. Treatment diagnosis and follow-up were discussed with the patient. Differential Diagnosis Differential Diagnosis: Situational anxiety, alcohol intoxication Discharge Plan Discharge Chief Complaint: Psychiatric Symptoms Clinical Impression: Situational anxiety Patient Disposition: Home, Self-Care Time of Disposition Decision: 03:10 Condition: Good Mode of Transportation: Private Vehicle Prescriptions / Home Meds: No Action koe-gctyhxqae-gdcxgffybigwr [Cold and Flu Medicine] .ROUTE amoxicillin 875 mg tablet 875 mg PO BID 10 Days Qty: 20 0RF Print Language: Beninese Instructions: Anxiety (ED) Referrals: Physician,Non-Staff, MD [Primary Care Provider] - 1 week
== END 2025-01-13 03:44 | disposition home or self-care (01) ==
PROVIDERS: Emergency Provider Emergency Medicine
DX: F41.8 Other specified anxiety disorders (principal); Z79.899 Other long term (current) drug therapy
CPT/HCPCS: 99281

== ENCOUNTER 2025-02-04 18:40 | Emergency (ER) | payer SELFPAY ==
--- OUTSIDE RECORDS SUMMARY | 2025-01-16 07:00 | XMS_ITS ---
Author Organization [facility] es Address [address] [place] [place] [address] Care Team Providers Care Alterations Tailor Name Role Phone Loraine Abdullahi Primary Care Provider REASON FOR VISIT BH 1 month f/u Encounters Encounter Location Date Provider Diagnosis [facility] [address] [place] [address] 01/16/2025 Loraine Abdullahi Plan Of Treatment Next Appt Details Provider Name:Salomon Beasley, 1 04/13/2024 11:00:00 AM, [address] [place], [address], Provider Name:Paola lee, 02/12/2025 08:00:00 AM, [address] [place], [address], Provider Name:Loraine hudson, 03/04/2025 09:45:00 AM, [address] [place], [address], Progress Notes * ERVIN CHAVESOB:2000 (24 yo M)Acc No.[id number]:01/16/2025 Behavioral Health Patient: Juan RONAL ANNEL :?Loraine Abdullahi CNPDOB:2000???Age:24 Y ???Sex:Male(T)Date:01/16/2025Phone:[phone]:[address] [place] [address] Subjective: * Chief Complaints: * B H 1 month f/u * Electronic signature of REBECCA Garcia on 02/04/2025 at 08:06 PM EDTSign off status: Pending * Provider: Britton Abdullahi CNP Date: Generated for Printing/Faxing/eTransmitting on:?02/04/2025 08:06 PM EDT
[2025-02-04 18:52] VITALS: BP 129/72; PULSE 101; TEMP 37.1; O2SAT 95; BMI 33.9
--- NOTE | 2025-02-04 19:32 | XR_ITS ---
The [address] [address] Patient Name: ANNEL CHAVES MRN: [id number] date: 2000 Sex: M Assigned Patient Location: ER Current Patient Location: ED.MAIN Accession/Order Number: [id number] Exam Date: 02/04/2025 19:42 Report Date: 02/04/2025 20:22 At the request of: FAHAD GARCÍA Procedure: XR hip RT 2V w/ pelvis Single frontal view pelvis and 2 views of the right hip INDICATION: Hip pain COMPARISON: None FINDINGS: No fracture dislocation identified. Joint spaces preserved. Presumed bone island right proximal femur. Soft tissues are normal. XR/XR hip RT 2V w/ pelvis IMPRESSION: Negative acute osseous findings. Impression dictated by: Stanley Aj M.D. 02/04/2025 8:22 PM Dictation Location: [place] [address] Electronically authenticated by: [id number] Y Date: 02/04/2025 20:22
--- NOTE | 2025-02-04 19:32 | XR_ITS ---
[place] [id number] Patient Name: ANNEL CHAVES MRN: [id number] date: 2000 Sex: M Assigned Patient Location: ER Current Patient Location: ED.MAIN Accession/Order Number: [id number] Exam Date: 02/04/2025 19:42 Report Date: 02/04/2025 20:29 At the request of: FAHAD GARCÍA Procedure: XR lumbar spine 2-3V 2 views lumbar spine INDICATION: Low back pain COMPARISON: None FINDINGS: Straightening and mild levocurvature of the lumbar spine. Minimal intervertebral space narrowing lumbosacral Junction. Otherwise, the Vertebral heights and disc space heights are grossly preserved. XR/XR lumbar spine 2-3V IMPRESSION: Mild degenerative changes lumbosacral junction. Mild levocurvature. Impression dictated by: Stanley Aj M.D. 02/04/2025 8:29 PM Dictation Location: [place] [address] Electronically authenticated by: [id number] Y Date: 02/04/2025 20:29
--- NOTE | 2025-02-04 19:36 | ED.GENADUL1 ---
Documented by User: RAQUEL Freedman 02/04/25 21:08 HPI HPI - General Adult General Chief complaint: Extremity Problem, Nontraumatic Stated complaint: PAIN IN HIP, LEGS AND BACK FOR A WEEK Time Seen by Provider: 02/04/25 19:21 Source: patient Mode of arrival: walk-in Limitations: no limitations History of Present Illness HPI narrative: Patient is a 24-year-old male with a past medical history of asthma that presents to the emergency department with complaints of 1 week of right hip and low back pain. The pain feels like a tight pain that radiates down the anterior thigh. He denies any injury. He denies any saddle anesthesia, lower extremity weakness, numbness, paresthesias, or bowel or bladder incontinence. He has been taking Tylenol without relief of his pain. Related Data Home Medications ?Medication ?Instructions ?Recorded ?Confirmed bupropion HCl 75 mg tablet 75 mg PO TID 02/04/25 02/04/25 Previous Rx's ?Medication ?Instructions ?Recorded hydrocodone 5 mg-acetaminophen 325 1 tab PO Q6H PRN pain #7 tabs 02/04/25 mg tablet ibuprofen 600 mg tablet 600 mg PO Q6H PRN pain #14 tabs 02/04/25 methylprednisolone 4 mg tablets in 4 mg PO DAILY #21 ea 02/04/25 a dose pack (Medrol (Reggie)) Allergies Allergy/AdvReac Type Severity Reaction Status Date / Time No Known Drug Allergies Allergy Verified 02/04/25 18:56 Opioid HPI Opioid Management Most Recent Opioid Data: Last Pain Scale 8 Today, 19:51 Last MAR Pain Assessment Today, 21:01 Review of Systems ROS Status of ROS 10 or more systems reviewed and unremarkable except as noted in history and below [facility] Medical History (Updated 02/04/25 @ 20:44 by RAQUEL Freedman) Asthma ?J45.909 - Unspecified asthma, uncomplicated (ICD-10) Social History Little interest or pleasure in doing things: not at all Feeling down, depressed, or hopeless: not at all Exam Narrative Exam Narrative: General: No distress, age-appropriate Skin: Warm, dry, no pallor. No rash. Head: Normocephalic, atraumatic. Neck: Supple, non-tender. Eye: Pupils are equal, round and EOMI. No scleral icterus. Ears, Nose, Mouth, and Throat: No nasal mucosal hypertrophy. Oral mucosa is moist, no posterior oropharynx erythema, uvula is mid-line Cardiovascular: Regular Rate and Rhythm without murmur, gallop or rub. Respiratory: No accessory muscle use or respiratory distress. Lungs are clear to auscultation, no wheezing, rales or rhonchi Chest Wall: no tenderness Back: No midline thoracic or lumbar vertebral tenderness. Musculoskeletal: Full ROM of all extremities, no calf or popliteal tenderness. 5/5 strength bilateral lateral lower extremities. Sensation intact with light touch bilateral lower extremities. Negative clonus bilaterally. Hip/back pain with internal/external range of motion. Negative logroll. Pain cannot be reproduced on exam. Neurological: A&O x4. No cranial nerve dysfunction observed. No truncal ataxia. Moves all extremities. Sensation intact. Psychiatric: Cooperative and interactive. Normal mood and affect. Constitutional Vital Signs, click to edit/add: Last Vital Signs Temp 98.8 F 02/04/25 18:52 Pulse 101 H 02/04/25 18:52 Resp 18 02/04/25 18:52 BP 129/72 02/04/25 18:52 Pulse Ox 95 02/04/25 18:52 Course Vital Signs Vital signs: Vital Signs Temperature 98.8 F 02/04/25 18:52 Pulse Rate 101 H 02/04/25 18:52 Respiratory Rate 18 02/04/25 18:52 Blood Pressure 129/72 02/04/25 18:52 Pulse Oximetry 95 02/04/25 18:52 Temperature 98.8 F 02/04/25 18:52 Pulse Rate 101 H 02/04/25 18:52 Respiratory Rate 18 02/04/25 18:52 Blood Pressure 129/72 02/04/25 18:52 Pulse Oximetry 95 02/04/25 18:52 Medical Decision Making MDM Narrative Medical decision making narrative: This is a 24-year-old male that presented to the ED with complaints of 1 week of right-sided low back pain that radiated to the lateral hip and anterior thigh. Patient denies any saddle anesthesia, bowel or bladder incontinence, bilateral lower extremity weakness, paresthesias, or numbness. On arrival patient appears uncomfortable but is sitting up in the ED cart. Vitals are hemodynamically stable. There is right-sided lumbar paraspinal tenderness, no midline lumbar tenderness, hip pain cannot be reproduced on palpation. There is some hip and back discomfort with range of motion of the hip internal/external rotation. IM Toradol 30 mg, 60 mg IM Norflex given and lidocaine patch applied. X-ray lumbar spine and right hip ordered. These x-rays were negative for fracture, dislocation, or acute abnormality. In the lumbar spine there is some levocurvature and mild degeneration of the lumbosacral junction. I discussed results with patient. He did drive himself here and is still having a little bit of pain. I will give him a Fence 5 mg tablet to go home to help control his pain more to sleep. Patient is agreeable to this. I discussed that if his pain is still persistent to make a follow-up with the [facility] neurosurgery group. Return precautions were discussed if he develops any saddle anesthesia, lower extremity weakness or numbness, or bowel or bladder incontinence. These are absent and cauda equina is unlikely. No emergent imaging indicated at this time. Patient was discharged with educations for pain control to include Medrol Dosepak, short course of Fence 5 mg, and ibuprofen 600 mg as needed for pain. Patient's pain was controlled and he was discharged with plan for follow-up with spine/neurosurgery. Differential Diagnosis Differential Diagnosis: Lumbar strain, lumbar radiculopathy, hip AVN Imaging Data Lumbar and right hip x-ray: Attestation: I have reviewed the pertinent imaging results. Radiologist's impression: ITS Impressions Hip/Pelvis X-Ray 02/04/25 19:32 IMPRESSION: Negative acute osseous findings. Impression dictated by: Stanley Aj M.D. 02/04/2025 8:22 PM Dictation Location: [place] [address] Electronically authenticated by: [id number] Y Date: 02/04/2025 20:22 Lumbar Spine X-Ray 02/04/25 19:32 IMPRESSION: Mild degenerative changes lumbosacral junction. Mild levocurvature. Impression dictated by: Stanley Aj M.D. 02/04/2025 8:29 PM Dictation Location: [place] [address] Electronically authenticated by: [id number] Y Date: 02/04/2025 20:29 Discharge Plan Discharge Chief Complaint: Extremity Problem, Nontraumatic Clinical Impression: Lumbar radiculopathy, right Patient Disposition: Home, Self-Care Time of Disposition Decision: 20:44 Condition: Good Mode of Transportation: Private Vehicle Prescriptions / Home Meds: New methylprednisolone [Medrol (Reggie)] 4 mg tablets,dose pack 4 mg PO DAILY Qty: 21 0RF hydrocodone-acetaminophen 5-325 mg tablet 1 tab PO Q6H PRN (Reason: pain) Qty: 7 0RF ibuprofen 600 mg tablet 600 mg PO Q6H PRN (Reason: pain) Qty: 14 0RF No Action bupropion HCl 75 mg tablet 75 mg PO TID Rx Instructions: administer 6 hours apart Print Language: Citizen Of [place] Instructions: Acute Low Back Pain (ED), Lumbar Radiculopathy (ED) Referrals: JEREMÍAS RASCON [Physician, Neurosurgery] - 1 week Physician,Non-Staff, MD [Primary Care Provider] - 1 week Discharge Date/Time: 02/04/25 21:04 Documented by User: Alberto Morales DO 02/04/25 21:44 HPI HPI - General Adult General Chief complaint: Extremity Problem, Nontraumatic Stated complaint: PAIN IN HIP, LEGS AND BACK FOR A WEEK Time Seen by Provider: 02/04/25 19:21 Related Data Home Medications ?Medication ?Instructions ?Recorded ?Confirmed bupropion HCl 75 mg tablet 75 mg PO TID 02/04/25 02/04/25 Previous Rx's ?Medication ?Instructions ?Recorded hydrocodone 5 mg-acetaminophen 325 1 tab PO Q6H PRN pain #7 tabs 02/04/25 mg tablet ibuprofen 600 mg tablet 600 mg PO Q6H PRN pain #14 tabs 02/04/25 methylprednisolone 4 mg tablets in 4 mg PO DAILY #21 ea 02/04/25 a dose pack (Medrol (Reggie)) Allergies Allergy/AdvReac Type Severity Reaction Status Date / Time No Known Drug Allergies Allergy Verified 02/04/25 18:56 Opioid HPI Opioid Management Most Recent Opioid Data: Last Pain Scale 8 Today, 19:51 Last MAR Pain Assessment Today, 21:01 [facility] Medical History (Updated 02/04/25 @ 20:44 by RAQUEL Freedman) Asthma ?J45.909 - Unspecified asthma, uncomplicated (ICD-10) Social History Little interest or pleasure in doing things: not at all Feeling down, depressed, or hopeless: not at all Exam Narrative Exam Narrative: General: No distress, age-appropriate Skin: Warm, dry, no pallor. No rash. Head: Normocephalic, atraumatic. Neck: Supple, non-tender. Eye: Pupils are equal, round and EOMI. No scleral icterus. Ears, Nose, Mouth, and Throat: No nasal mucosal hypertrophy. Oral mucosa is moist, no posterior oropharynx erythema, uvula is mid-line Cardiovascular: Regular Rate and Rhythm without murmur, gallop or rub. Respiratory: No accessory muscle use or respiratory distress. Lungs are clear to auscultation, no wheezing, rales or rhonchi Chest Wall: no tenderness Back: No midline thoracic or lumbar vertebral tenderness. Musculoskeletal: There is reproducible tenderness to palpation of the paraspinal muscles of the lower back. There is no midline L-spine tenderness. Positive straight leg raise test on the right. Full range of motion in the bilateral lower extremities. Ambulates with an antalgic gait, but is able to do so unassisted. Neuro: 5/5 strength with bilateral hip flexion/extension, knee flexion/extension, ankle plantar/dorsiflexion, and flexion/extension of the great toe. Intact sensation to light touch in the bilateral lower extremities from the inner part of the thigh to the feet. Psychiatric: Cooperative and interactive. Normal mood and affect. Constitutional Vital Signs, click to edit/add: Last Vital Signs Temp 98.8 F 02/04/25 18:52 Pulse 101 H 02/04/25 18:52 Resp 18 02/04/25 18:52 BP 129/72 02/04/25 18:52 Pulse Ox 95 02/04/25 18:52 Course Vital Signs Vital signs: Vital Signs Temperature 98.8 F 02/04/25 18:52 Pulse Rate 101 H 02/04/25 18:52 Respiratory Rate 18 02/04/25 18:52 Blood Pressure 129/72 02/04/25 18:52 Pulse Oximetry 95 02/04/25 18:52 Temperature 98.8 F 02/04/25 18:52 Pulse Rate 101 H 02/04/25 18:52 Respiratory Rate 18 02/04/25 18:52 Blood Pressure 129/72 02/04/25 18:52 Pulse Oximetry 95 02/04/25 18:52 Medical Decision Making MDM Narrative Medical decision making narrative: This is a 24-year-old male that presented to the ED with complaints of 1 week of right-sided low back pain that radiated to the lateral hip and anterior thigh. Patient denies any saddle anesthesia, bowel or bladder incontinence, bilateral lower extremity weakness, paresthesias, or numbness. On arrival patient appears uncomfortable but is sitting up in the ED cart. Vitals are hemodynamically stable. There is right-sided lumbar paraspinal tenderness, no midline lumbar tenderness, hip pain cannot be reproduced on palpation. There is some hip and back discomfort with range of motion of the hip internal/external rotation. IM Toradol 30 mg, 60 mg IM Norflex given and lidocaine patch applied. X-ray lumbar spine and right hip ordered. These x-rays were negative for fracture, dislocation, or acute abnormality. In the lumbar spine there is some levocurvature and mild degeneration of the lumbosacral junction. I discussed results with patient. He did drive himself here and is still having a little bit of pain. I will give him a Fence 5 mg tablet to go home to help control his pain more to sleep. Patient is agreeable to this. I discussed that if his pain is still persistent to make a follow-up with the [facility] neurosurgery group. Return precautions were discussed if he develops any saddle anesthesia, lower extremity weakness or numbness, or bowel or bladder incontinence. These are absent and cauda equina is unlikely. No emergent imaging indicated at this time. Patient was discharged with educations for pain control to include Medrol Dosepak, short course of Fence 5 mg, and ibuprofen 600 mg as needed for pain. Patient's pain was controlled and he was discharged with plan for follow-up with spine/neurosurgery. ATTENDING ADDENDUM: Dr. Morales Patient seen and evaluated at bedside with midlevel provider. Agree with plan. No findings that would be suggestive of cauda equina syndrome. No history of IV drug use, fevers, midline vertebral tenderness to suggest spinal epidural abscess. Imaging Data Lumbar and right hip x-ray: Radiologist's impression: ITS Impressions Hip/Pelvis X-Ray 02/04/25 19:32 IMPRESSION: Negative acute osseous findings. Impression dictated by: Stanley Aj M.D. 02/04/2025 8:22 PM Dictation Location: [facility] Electronically authenticated by: [id number] Y Date: 02/04/2025 20:22 Lumbar Spine X-Ray 02/04/25 19:32 IMPRESSION: Mild degenerative changes lumbosacral junction. Mild levocurvature. Impression dictated by: Stanley Aj M.D. 02/04/2025 8:29 PM Dictation Location: [place] [address] Electronically authenticated by: [id number] Y Date: 02/04/2025 20:29 Discharge Plan Discharge Chief Complaint: Extremity Problem, Nontraumatic Clinical Impression: Lumbar radiculopathy, right Patient Disposition: Home, Self-Care Time of Disposition Decision: 20:44 Condition: Good Mode of Transportation: Private Vehicle Prescriptions / Home Meds: New methylprednisolone [Medrol (Reggie)] 4 mg tablets,dose pack 4 mg PO DAILY Qty: 21 0RF hydrocodone-acetaminophen 5-325 mg tablet 1 tab PO Q6H PRN (Reason: pain) Qty: 7 0RF ibuprofen 600 mg tablet 600 mg PO Q6H PRN (Reason: pain) Qty: 14 0RF No Action bupropion HCl 75 mg tablet 75 mg PO TID Rx Instructions: administer 6 hours apart Print Language: Citizen Of [place] Instructions: Acute Low Back Pain (ED), Lumbar Radiculopathy (ED) Referrals: JEREMÍAS RASCON [Physician, Neurosurgery] - 1 week Physician,Non-Staff, [Primary Care Provider] - 1 week Discharge Date/Time: 02/04/25 21:04
[2025-02-04] MEDS: LIDOCAINE 5% PATCH 1 PATCH TOPICAL (19:51)
[2025-02-04] MEDS: KETOROLAC TROMETHAMINE 30 MG/ML VIAL IM (19:51)
[2025-02-04] MEDS: ORPHENADRINE 60 MG/2 ML VIAL IM (19:51)
--- OUTSIDE RECORDS SUMMARY | 2025-02-04 20:06 | XMS_ITS | Patient Health Record ---
Author Organization [facility] Servic es Address [address] [place] [address] Care Team Providers Care Clinical Investigator Name Role Phone Loraine Abdullahi Primary Care Provider [phone] Allergies No Known Allergies Reason For Referral No Information Medications Medication SIG (Take, Route, Frequency, Duration) Notes Start Date End Date Status Wellbutrin XL 150 MG Tablet Extended Release 24 Hour 1 tablet in the morning Orally Once a day; Duration: 30 days 5Active Social History Tobacco Use: Social History Observation Description Date Details (start date - stop date) Former Smoker NA - 11/18/2024 Social History Drug/Alcohol:Social InfoQuestionAnswerNotesAUDIT-C (Standard)Did you have a drink containing alcohol in the past year?EhWjxgvo5NwmocnrgwtmaycWpsmljeyOWSX-61 (2020 Edition)1. Have you used drugs other than those required for medical reasons?No2. Do you abuse more than one drug at a time?No3. Are you always able to stop using drugs when you want to?Yes4. Have you had blackouts or flashbacks as a result of drug use?No5. Do you ever feel bad or guilty about your drug use?No6. Does your spouse (or parents) ever complain about your involvement with drugs?No7. Have you neglected your family because of your use of drugs?No8. Have you engaged in illegal activities in order to obtain drugs?No 9. Have you ever experienced withdrawal symptoms (felt sick) when you stopped taking drugs?No10. Have you had medical problems as a result of your drug use (e.g., memory loss, hepatitis, convulsions, bleeding etc.)?NoResults:0 Interpretation of Score:No problems reportedTobacco Use:Social InfoQuestion AnswerNotesTobacco Control (Standard)Tobacco use:Former smoker? When did you stop smoking?11/18/2024? How long has it been since you last smoked?1-3 months Additional Findings: Tobacco usere-cigarette,Light cigarette smoker (1-9 cigs/day)Additional Findings: Tobacco ews-hiigRz-lofuk cigarette smoker (1-9/day) Vital Signs Heart Rate 97 /min 01/20/2025 Qgcpyilcnka77.5 degrees Ywzurnilqu90/11/7548Qruxbuxm02 %01/20/2025lood pressure mm Hg01/20/20251203Mqyuzh26 in01/20/2025lood pressure yfzjdkbe178 mm Hg 01/20/20258904Vyebtt779.6 lbs1MI35.51 kg/m201/20/2025 Encounters Encounter Location Date Provider Diagnosis [address] [address] 12/19/2024 Loraine Kaylen Depression, unspe cified depression type F32.A [address] [address] 01/20/2025 Loraine Kaylen Depression, unspe cified depression type F32.A Assessments Encounter Date Diagnosis (ICD Code) Assessment Notes Treatment Notes Treatment Clinical Notes Section Notes 12/19/2024 Depression, unspecified depressi on type (ICD-10 - F32.A) Will start patient [...] plan. f/u in 1 month and PRN 01/20/2025Depression, unspecified depression type (ICD-10 - F32.A) Continue medication f/u in 1 month and PRN potential side effects were discussed as well as proper administration of medication. Pt verbalizesunderstanding. Pt is aware not to stop medication suddenly and to come to office to be weaned down,abrupt discontinuation can cause withdrawal symptoms. Stable mood today, no c/o SI/HI, if feelings occur pt to call 911/ER. Discussed coping mechanisms such as exercise, group therapy, and counseling. Plan Of Treatment Next Appt Details Provider Name:Salomon Ramos, 1 04/13/2024 11:00:00 AM, [address] [place], [address], Provider Name:Paola lee, 02/12/2025 08:00:00 AM, [address] [place], [address], Provider Name:Loraine hudson, 03/04/2025 09:45:00 AM, [address] [place], [address], Medical (General) History Medical History History ICD Code Asthma DepressionAnxietyHospitalization History Reason Date(Month/Year) Mental health x3
[2025-02-04] MEDS: HYDROCODONE/ACET 5-325 MG TABLET 1 TAB PO (21:01)
== END 2025-02-04 21:04 | disposition home or self-care (01) ==
PROVIDERS: Emergency Provider Student in an Organized Health Care Education/Training Program
DX: M54.16 Radiculopathy, lumbar region (principal); J45.909 Unspecified asthma, uncomplicated
CPT/HCPCS: 72100; 73502; 96372; 99284; J1885; J2360

== ENCOUNTER 2025-02-15 00:10 | Emergency (ER) | payer SELFPAY ==
[2025-02-15 00:14] VITALS: BP 155/89; PULSE 90; TEMP 36.8; O2SAT 98; BMI 33.9
[2025-02-15 00:53] LABS: Hematocrit 45.6 % (42.0-54.0); Hemoglobin 14.9 g/dL (14.0-18.0); Immature Granulocytes Abs Auto 0.11 10^3/uL (0.00-0.03); Immature Granulocytes Pct Auto 1.0 % (0.0-0.5); Lymphocytes Absolute Auto 2.2 10^3/uL (1.2-3.8); Mean Corpuscular HGB Conc 32.7 g/dL (29.9-35.2); Mean Corpuscular Hemoglobin 26.9 pg (25.9-34.0); Mean Corpuscular Volume 82.3 fL (80.0-94.0); Platelet Count 331 10^3/uL (150-450); Red Blood Count 5.54 10^6/uL (4.70-6.10); White Blood Count 11.5 10^3/uL (4.0-11.0)
[2025-02-15] MEDS: 0.9 % SODIUM CHLORIDE 1,000 ML 999 ML IV (00:56)
[2025-02-15 01:13] LABS: Alanine Aminotransferase 25 U/L (16-63); Albumin Globulin Ratio 1.2; Albumin Level 3.9 g/dL (3.4-5.0); Alkaline Phosphatase 61 U/L (46-116); Anion Gap 12.5; Aspartate Amino Transferase 14 U/L (15-37); Blood Urea Nitrogen 12.0 mg/dL (7.0-18.0); Calcium 8.9 mg/dL (8.5-10.1); Carbon Dioxide 27.0 mmol/L (21.0-32.0); Chloride 103 mmol/L (98-107); Estimated GFR (African America >60 (>=60 mL/min/1.73m^2); Estimated GFR (Non-African Ame >60 (>=60 mL/min/1.73m^2); Globulin 3.2 g/dL; Glucose 102 mg/dL (74-106); Potassium 3.5 mmol/L (3.5-5.1); Sodium 139 mmol/L (136-145); Total Protein 7.1 g/dL (6.4-8.2)
[2025-02-15 01:15] LABS: Lactate/Lactic Acid 0.6 mmol/L (0.4-2.0)
--- NOTE | 2025-02-17 19:46 | ED_ITS ---
HPI - Abdominal Pain General Chief Complaint: Abdominal Pain Stated Complaint: abd pain Time Seen by Provider: 02/15/25 00:20 Source: patient Mode of arrival: walk-in Limitations: no limitations and other Limitations comment: None History of Present Illness HPI narrative: patient presents complaining of abdominal pain. . no vomiting or diarrhea. No URI symptoms or rash Related Data Home Medications ?Medication ?Instructions ?Recorded ?Confirmed bupropion HCl 75 mg tablet 75 mg PO TID 02/04/2502/15 Previous Rx's ?Medication ?Instructions ?Recorded ibuprofen 600 mg tablet 600 mg PO Q6H PRN pain #14 t abs 02/04/25 Allergies Allergy/AdvReac Type Severity Reaction Status Date / Time No Known Drug Allergies Allergy Verified 02/15/25 00:19 Review of Systems ROS Status of ROS 10 or more systems reviewed and unremark able except as noted in history and below [facility] Medical History (Updated 02/15/25 @ 02:03 by Jorge Wilkins MD) Asthma ?J45.909 - Unspecified asthma, uncomplicated (ICD-10) Social History Little interest or pleasure in doing things: not at all Feeling down, depressed, or hopeless: not at all Exam Constitutional Vital Signs, click to edit/add: Last Vital Signs Temp 98.2 F 02/15/25 00:14 Pulse 90 02/15/25 00:14 Resp 16 02/15/25 00:14 BP 155/89 H 02/15/25 00:14 Pulse Ox 98 02/15/25 00:14 O2 Del Method Room Air 02/15/25 00:14 Common normals: no apparent distress, average body habitus, oriented x3, no limitations, healthy appearing, alert and well nourished [facility] Common normals: normocephalic and head/scalp atraumatic Eye Common normals: EOMs intact bilaterally and conjunctivae normal Respiratory Common normals: normal respiratory effort, no retractions, no use of accessory muscles and clear to auscultation bilaterally Cardio Common normals: regular rate, regular rhythm, S1 normal heart sound and S2 normal heart sound GI Common normals: Normal to inspection, nondistended, normoactive bowel sounds p resent and soft to palpation Other: mild nonspecific tenderness. no guarding Extremity Common normals: normal to inspection and full ROM Neuro Common normals: oriented x3, CN's II-XII intact bilaterally, moves all extremities and no focal motor deficits Psych Appearance: grossly normal Course Vital Signs Vital signs: Vital Signs Temperature 98.2 F 02/15/25 00:14 Pulse Rate 90 02/15/25 00:14 Respiratory Rate 16 02/15/25 00:14 Blood Pressure 155/89 H 02/15/25 00:14 Pulse Oximetry 98 02/15/25 00:14 Oxygen Delivery Method Room Air 02/15/25 00:14 Temperature 98.2 F 02/15/25 00:14 Pulse Rate 90 02/15/25 00:14 Respiratory Rate 16 02/15/25 00:14 Blood Pressure 155/89 H 02/15/25 00:14 Pulse Oximetry 98 02/15/25 00:14 Oxygen Delivery Method Room Air 02/15/25 00:14 MDM - Abdominal Pain MDM Narrative Medical decision making narrative: presents with abdominal pain. Labs obtained including CBC and CMP. labs WNL. abd/pelvic CT report reviewed with the patient and working diagnosis of enteritis and plan for conservative treatment including OTC meds as needed and to follow up with his doctor for recheck Lab Data Labs: Lab Results 02/15/25 Range/Units 00:45 WBC 11.5 H (4.0-11.0) 10^3/uL RBC 5.54 (4.70-6.10) 10^6/uL Hgb 14.9 (14.0-18.0) g/dL Hct 45.6 (42.0-54.0) % MCV 82.3 (80.0-94.0) fL MCH 26.9 (25.9-34.0) pg MCHC 32.7 (29.9-35.2) g/dL RDW 13.3 (11.0-15.0) % Plt Count 331 (150-450) 10^3/uL MPV 9.4 L (9.5-13.5) fL Neut % (Auto) 67.2 (43.0-75.0) % Lymph % (Auto) 18.8 L (20.5-60.0) % [place] % (Auto) 8.5 (1.7-12.0) % Eos % (Auto) 3.8 (0.9-7.0) % Baso % (Auto) 0.7 (0.2-2.0) % Neut # (Auto) 7.7 H (1.4-6.5) 10^3/uL Lymph # (Auto) 2.2 (1.2-3.8) 10^3/uL [place] # (Auto) 1.0 H (0.3-0.8) 10^3/uL Eos # (Auto) 0.4 (0.0-0.7) 10^3/uL Baso # (Auto) 0.1 (0.0-0.1) 10^3/uL Abs Immat Gran (auto) 0.11 H (0.00-0.03) 10^3/uL Imm/Tot Granulo (auto) 1.0 H (0.0-0.5) % Sodium 139 (136-145) mmol/L Potassium 3.5 (3.5-5.1) mmol/L Chloride 103 (98-107) mmol/L Carbon Dioxide 27.0 (21.0-32.0) mmol/L Anion Gap 12.5 BUN 12.0 (7.0-18.0) mg/dL Creatinine 0.84 (0.70-1.30) mg/dL Est GFR ( Amer) >60 (>=60 mL/min/1.73m^2) Est GFR (Non-Af Amer) >60 (>=60 mL/min/1.73m^2) BUN/Creatinine Ratio 14.3 Glucose 102 (74-106) mg/dL Lactate 0.6 (0.4-2.0) mmol/L Calcium 8.9 (8.5-10.1) mg/dL Total Bilirubin 1.1 H (0.2-1.0) mg/dL AST 14 L (15-37) U/L ALT 25 (16-63) U/L Alkaline Phosphatase 61 (46-116) U/L Total Protein 7.1 (6.4-8.2) g/dL Albumin 3.9 (3.4-5.0) g/dL Globulin 3.2 g/dL Albumin/Globulin Ratio 1.2 Discharge Plan Discharge Chief Complaint: Abdominal Pain Clinical Impression: Enteritis Patient Disposition: Home, Self-Care Prescriptions / Home Meds: No Action bupropion HCl 75 mg tablet 75 mg PO TID Rx Instructions: administer 6 hours apart ibuprofen 600 mg tablet 600 mg PO Q6H PRN (Reason: pain) Qty: 14 0RF Print Language: Albanian Instructions: Enteritis (ED) Additional Instructions: follow up with your doctor next week Referrals: Physician,Non-Staff, MD [Primary Care Provider] - 1 week Discharge Date/Time: 02/15/25 01:58
== END 2025-02-15 01:58 | disposition home or self-care (01) ==
PROVIDERS: Emergency Provider Internal Medicine
DX: K52.9 Noninfective gastroenteritis and colitis, unspecified (principal)
CPT/HCPCS: 36415; 74177; 80053; 81001; 83605; 85025; 96374; 99284; J2405; Q9967

== ENCOUNTER 2025-03-23 14:44 | Emergency (ER) | payer SELFPAY ==
--- OUTSIDE RECORDS SUMMARY | 2025-01-16 06:00 | XMS_ITS ---
Author Organization [facility] es Address [address] [place] [address] Care Team Providers Care Flight Operations Coordinator Name Role Phone Loraine Abdullahi Primary Care Provider [phone] REASON FOR VISIT BH 1 month f/u Encounters Encounter Location Date Provider Diagnosis [facility] [address] [place] [address] 01/16/2025 Loraine Abdullahi Plan Of Treatment Next Appt Details Provider Name:Paola lee, 03/27/2025 11:00:00 AM, [address], [place], [address], Provider Name:Megan mcdonnell, 04/17/2025 11:00:00 AM, [address], [place], [address], Provider Name:Naye Valenzuela, 06/2025 10:30:00 AM, [address], [place], [address], Provider Name:Naye Valenzuela, 09/2025 10:00:00 AM, [address], [place], [address], Provider Name:Naye Valenzuela, 01/2026 10:00:00 AM, [address], [place], [address], Provider Name:Naye Valenzuela, 09:30:00 AM, [address], [place], [address], Provider Name:Naey Valenzuela, 10:30:00 AM, [address], [place], [address], Provider Name:Paola Winslow, 08/27/2025 10:00:00 AM, [address], [place], [address], Progress Notes * ERVIN CHAVESOB:2000 (24 yo M)Acc No.[id number]:01/16/2025 Behavioral Health Patient: Juan ANNEL VILLEDA :?Loraine Abdullahi CNPDOB:2000???Age:24 Y ???Sex:Male(T)Date:01/16/2025Phone:[phone]:[address], [place] Subjective: * Chief Complaints: * B H 1 month f/u * Electronic signature of REBECCA Garcia on 03/23/2025 at 03:41 PM ESTSign off status: Pending * Provider: Britton Abdullahi CNP Date: Generated for Printing/Faxing/eTransmitting on:?03/23/2025 03:41 PM EST
--- OUTSIDE RECORDS SUMMARY | 2025-02-11 06:00 | XMS_ITS ---
Author Organization [facility] Serv[facility] es Address [address] [place] [address] Care Team Providers Care Wildfire Prevention Specialist Name Role Phone Kaylen, Loraine Primary Care Provider [phone] Dr. Salomon Beasley Unavailable [phone] REASON FOR VISIT NEW PATIENT Encounters Encounter Location Date Provider Diagnosis [facility] [address] [facility] [place] [address] 2024 Salomon Beasley Plan Of Treatment Next Appt Details Provider Name:Paola lee, 03/27/2025 11:00:00 AM, [address], [facility], [address], Provider Name:Megan mcdonnell, 04/17/2025 11:00:00 AM, [address], [place], [address], Provider Name:Naye Valenzuela, 06/2025 10:30:00 AM, [address], [place], [address], Provider Name:Naye Valenzuela, 09/2025 10:00:00 AM, [place], [address], Provider Name:Naye Valenzuela, 01/2026 10:00:00 AM, [address], [place], [address], Provider Name:Naye Valenzuela, 09:30:00 AM, [address], [place], [address], Provider Name:Naye Valenzuela, 10:30:00 AM, [address], [place], [address], Provider Name:Paola Winslow, 08/27/2025 10:00:00 AM, [address], [place], [address], Progress Notes * CARYN CHAVESENDOB:2000 (24 yo M)Acc No.[id number]:02/11/2025 Patient:?ANNEL CHAVES :?ROSHAN MedranoOB:2000???Age:24 Y???Sex: Male(T)Date:02/11/2025Phone:[phone]:[address], [place]-[address]Pcp:Loraine Abdullahi Subjective: * Chief Complaints: * N EW PATIENT * Electronic signature of Dr. Salomon Beasley , [facility], [id number] on 03/23/2025 at 03:41 PM ESTSign off status: Pending * Provider: Arabella Beasley DDS Date: 04/13/2024 Generated for Printing/Faxing/eTransmitting on:?03/23/2025 03:41 PM EST
--- OUTSIDE RECORDS SUMMARY | 2025-03-13 06:15 | XMS_ITS ---
Author Organization [facility] es Address [address] [place] [address] Care Team Providers Care Utility Locate Technician Name Role Phone KaylenLoraine del castillo Primary Care Provider [phone] Blanca Paola Rutherford [phone] REASON FOR VISIT 2 week f/u Encounters Encounter Location Date Provider Diagnosis [facility] [place] [address] [place] [address] 03/13/2025 Paola Rutherford Plan Of Treatment Next Appt Details Provider Name:Paola lee, 03/27/2025 11:00:00 AM, [address] [place], [address], Provider Name:Megan mcdonnell, 04/17/2025 11:00:00 AM, [address] [place], [address], Provider Name:Naye Valenzuela, 06/2025 10:30:00 AM, [address] [place], [address], Provider Name:Naye Valenzuela, 09/2025 10:00:00 AM, [place], [address], Provider Name:Naye Valenzuela, 01/2026 10:00:00 AM, [address] [place], [address], Provider Name:Naye Valenzuela, 09:30:00 AM, [address], [place], [address], Provider Name:Naye Valenzuela, 10:30:00 AM, [address], [place], [address], Provider Name:Paola Winslow, 08/27/2025 10:00:00 AM, [address], [place], [address], Progress Notes * CARYN CHAVESENDOB:2000 (24 yo M)Acc No.[id number]:03/13/2025 F/U - Patient Patient: Juna VILLEDA ANNEL :?Paola RutherfordDOB:2000???Age:24 Y???Sex: Male(T)Date:03/13/2025Phone:[phone]:[address] [place], [place]-[address]Pcp:Loraine Abdullahi Subjective: * Chief Complaints: * 2 week f/u Care Plan Details* * Electronic signature of MAKENNA Hull on 03/23/2025 at 03:41 PM ESTSign off status: Pending * Provider: Marie Rutherford Date: 1 05/14/2024 Generated for Printing/Faxing/eTransmitting on:?03/23/2025 03:41 PM EST
[2025-03-23 14:48] VITALS: BP 154/81; PULSE 108; O2SAT 99; BMI 34.6
[2025-03-23 14:54] VITALS: PULSE 100
[2025-03-23] MEDS: ALBUTEROL SULFATE 2.5 MG/3 ML VIAL NEB IH (14:54)
[2025-03-23] MEDS: IPRATROPIUM/ALBUTEROL SULFATE 3 ML AMPUL.NEB IH (15:01)
--- NOTE | 2025-03-23 15:09 | ED_ITS ---
HPI HPI - General Adult General Chief complaint: Asthma Stated complaint: SOB Time Seen by Provider: 03/23/25 14:49 Mode of arrival: Wheelchair Limitations: no limitations History of Present Illness HPI narrative: Patient is a 24-year-old male that presents with shortness of breath and does have a PMH of asthma. Started about 30 minutes prior to arrival. He just moved here from [place] about 6 months ago and has run out of his inhaler. Related Data Home Medications ?Medication ?Instructions ?Recorded ?Confirmed bupropion HCl 75 mg tablet 75 mg PO TID 02/04/2502/15 Previous Rx's ?Medication ?Instructions ?Recorded ibuprofen 600 mg tablet 600 mg PO Q6H PRN pain #14 t abs 02/04/25 albuterol sulfate 90 mcg/actuation 2 inh inhalation Q4 H PRN shortness 03/23/25 aerosol inhaler of breath or wheezing #8.5 g jeanne Allergies Allergy/AdvReac Type Severity Reaction Status Date / Time No Known Drug Allergies Allergy Verified 03/23/25 14:51 Opioid HPI Opioid Management Most Recent Opioid Data: Last Pain Scale 8 Today, 14:48 Review of Systems ROS Status of ROS 10 or more systems reviewed and unremark able except as noted in history and below [facility] Medical History (Updated 03/23/25 @ 16:05 by RAQUEL Freedman) Asthma ?J45.909 - Unspecified asthma, uncomplicated (ICD-10) Social History Little interest or pleasure in doing things: not at all Feeling down, depressed, or hopeless: not at all Exam Narrative Exam Narrative: General: No distress, age-appropriate Skin: Warm, dry, no pallor. No rash. Head: Normocephalic, atraumatic. Neck: Supple, non-tender. Eye: Pupils are equal, round and EOMI. No scleral icterus. Ears, Nose, Mouth, and Throat: No nasal mucosal hypertrophy. Oral mucosa is moist, no posterior oropharynx erythema, uvula is mid-line Cardiovascular: Regular Rate and Rhythm without murmur, gallop or rub. Respiratory: Accessory muscle use with mild respiratory distress Lungs with inspiratory/expiratory wheezing bilaterally, patient only able to speak a few words at a time Chest Wall: no tenderness Musculoskeletal: Full ROM of all extremities, no calf or popliteal tenderness Neurological: A&O x4. No cranial nerve dysfunction observed. No truncal ataxia. Moves all extremities. Sensation intact. Psychiatric: Cooperative and interactive. Normal mood and affect. Constitutional Vital Signs, click to edit/add: Last Vital Signs Pulse 100 H 03/23/25 14:54 Resp 36 H 03/23/25 14:54 BP 154/81 H 03/23/25 14:48 Pulse Ox 99 03/23/25 14:48 O2 Del Method Room Air 03/23/25 14:54 Documenting provider has reviewed patient's vital signs: yes Course Vital Signs Vital signs: Vital Signs Pulse Rate 108 H 03/23/25 14:48 Respiratory Rate 36 H 03/23/25 14:48 Blood Pressure 154/81 H 03/23/25 14:48 Pulse Oximetry 99 03/23/25 14:48 Oxygen Delivery Method Room Air 03/23/25 14:48 Pulse Rate 100 H 03/23/25 14:54 Respiratory Rate 36 H 03/23/25 14:54 Blood Pressure 154/81 H 03/23/25 14:48 Pulse Oximetry 99 03/23/25 14:48 Oxygen Delivery Method Room Air 03/23/25 14:54 Medical Decision Making MDM Narrative Medical decision making narrative: This is a 24-year-old male that presented with 30 minutes of acute onset of SOB while he was at work, he had run out of his inhaler as he moved here from [place] 6 months ago and has not established with a PCP. On arrival patient is in moderate respiratory distress, accessory muscle use, inspiratory/expiratory wheezing, speaking 1 word at a time, hypertensive 154/81 and mildly tachy at 108. No fever, rash, hypoxia, or signs of anaphylaxis or infection. Respiratory called, albuterol nebulizer treatment given. Patient still in mild respiratory distress and DuoNeb ordered and given. On reexamination patient able to speak in full sentences, no wheezing heard on auscultation. Lungs clear bilaterally, no rales or crackles as well. Patient reports great improvement, feels shaky from medicine. He was observed in the emergency department for one hour post-treatment with stable vital signs, no respiratory distress, and clear lung sounds on exam. Given the patient?s full clinical improvement, lack of hypoxia, and absence of concerning findings to suggest pneumonia, pneumothorax, pulmonary embolism, or other acute cardiopulmonary pathology, further diagnostic testing was not indicated. The patient was deemed stable for discharge with an albuterol inhaler prescription, asthma education, and return precautions. Patient discharged and again counseled to call to obtain PCP in [facility] [address], resources given. Differential Diagnosis Differential Diagnosis: Acute asthma exacerbation, allergic reaction, PNA Discharge Plan Discharge Chief Complaint: Asthma Clinical Impression: Asthma with acute exacerbation Patient Disposition: Home, Self-Care Time of Disposition Decision: 16:04 Condition: Good Mode of Transportation: Private Vehicle Prescriptions / Home Meds: New albuterol sulfate 90 mcg/actuation HFA aerosol inhaler 2 inh inhalation Q4H PRN (Reason: shortness of breath or wheezing) Qty: 8.5 0RF No Action bupropion HCl 75 mg tablet 75 mg PO TID Rx Instructions: administer 6 hours apart ibuprofen 600 mg tablet 600 mg PO Q6H PRN (Reason: pain) Qty: 14 0RF Print Language: Nauruan Instructions: Asthma (ED) Referrals: Physician,Non-Staff, MD [Primary Care Provider] - 1 week
--- OUTSIDE RECORDS SUMMARY | 2025-03-23 15:42 | XMS_ITS | Patient Health Record ---
Author Organization [facility] Servic es Address [address] [place] [address] Care Team Providers Care Commercial Account Manager Name Role Phone Kaylen Loraine Primary Care Provider Dr. Salomon Beasley Unavailable [phone] Naye Valenzuela Unavailable [phone] Paola Rutherford Unavailable [phone] Allergies No Known Allergies Reason For Referral No Information Medications Medication SIG (Take, Route, Frequency, Duration) Notes Start Date End Date Status Propranolol HCl 10 MG Tablet 1 tablet Orally twice a day; Duration: 30 days As needed 5ActiveWellbutrin XL 300 MG Tablet Extended Release 24 Hour1 tablet in the morning Orally Once a day; Duration: 30 days5Active Social History Tobacco Use: Social History Observation Description Date Details (start date - stop date) Current Smoker NA - NA Social History GeneralSocial InfoQuestionAnswerNotesDepression Screening (PHQ-9):Little interest or pleasure in doing thingsSeveral daysFeeling down, depressed, or hopelessMore than half the daysTrouble falling or staying asleep, or sleeping too muchNot at allFeeling tired or having little energySeveral daysPoor appetite or overeatingMore than half the daysFeeling bad about yourself-or that you are a failure or have let yourself or your family downSeveral daysTrouble concentrating on things, such as reading the newspaper or watching televisionNot at allMoving or speaking so slowly that other people could have noticed. Or the opposite being so fidgetyor restless that you have been moving around a lot more than usualMore than half the daysThoughts that you would be better off , or of hurting yourself in some waySeveral days(Consider Suicide Assessment Risk) Total Jdlxz38EavfphrpvakhhZjercllc DepressionDrug/Alcohol:Social InfoQuestion AnswerNotesAUDIT-C (Standard)Did you have a drink containing alcohol in the past year?OzDjjjro2ZonjkxhgotbxkqJxytxsddDLCT-54 (2020 Edition)1. Have you used drugs other than those required for medical reasons?No2. Do you abuse more than one drug at a time?No3. Are you always able to stop using drugs when you want to?Yes 4. Have you had blackouts or flashbacks as a result of drug use?No5. Do you ever feel bad or guilty about your drug use?No6. Does your spouse (or parents) ever complain about your involvement with drugs?No7. Have you neglected your family because of your use of drugs?No8. Have you engaged in illegal activities in order to obtain drugs?No9. Have you ever experienced withdrawal symptoms (felt sick) when you stopped taking drugs?No10. Have you had medical problems as a result of your drug use (e.g., memory loss, hepatitis, convulsions, bleeding etc.)?NoResults:0Interpretation of Score:No problems reportedTobacco Use:Social InfoQuestionAnswerNotesTobacco Control (Standard)Tobacco use:Current smoker? How often do you smoke cigarettes?Every day? How many cigarettes a day do you smoke? 5 or lessAdditional Findings: Tobacco usere-cigaretteSection Notes: Vapes Problems Problem Type SNOMED Code ICD Code Onset Dates Problem Status W/U Status Risk Notes Problem Generalized anxiety disorder (22979021) A nxiety, generalized (F41.1) ActiveconfirmedProblemModerate recurrent major depression (91952756)Major depressive disorder, recurrent episode, moderate with anxious distress (F33.1) Activeconfirmed Vital Signs Heart Rate 82 /min 03/04/2025 Dvjwnmnjooi56.3 degrees Haswssriom55/25/2025Respiratory Rate18 /min03/04/2025 Pmrthrdu54 %03/04/2025lood pressure nbgikwjpr87 mm Hg03/04/20252374Qxnayk13 in 03/04/2025lood pressure mm Hg03/04/20258187Wkhzkg374.6 lbs105/04/2024MI 36.48 kg/m203/04/2025 Encounters Encounter Location Date Provider Diagnosis [facility] [address] [place] [address] 02/14/2025 Naye Yi Dental caries on pit and fissure surface penetrating into dentin K02.52 ; Acute gingivitis, plaque induced K05.00 ; Cracked tooth K03.81 ; Encounter for dental examination and cleaning with abnormal findings Z01.21 ; Other dental procedure status Z98.818 and Disturbances in tooth eruption K00.[address] [address] 12/19/2024 Loraine Kaylen Depression, unspecified depression type F32.A [address] [address] 01/20/2025 Loraine Kaylen Depression, unspecified depression type F32.A [address] [address] 03/04/2025 Loraine Kaylen Major depressive disorder, recurrent episode, moderate with anxious distress F33.1 and Anxiety, generalized F41.[address] [address] 02/12/2025 Paola Rutherford Major depressive disorder, recurrent episode, moderate with anxious distress F33.[address] [address] 02/27/2025 Paola Rutherford Major depressive disorder, recurrent episode, moderate with anxious distress F33.1 Assessments Encounter Date Diagnosis (ICD Code) Assessment [...] such as exercise, group therapy, and counseling. 02/12/2025Major depressive disorder, recurrent episode, moderate with anxious distress (ICD-10 - F33.1)02/14/2025Dental caries on pit and fissure surface penetrating into dentin (ICD-10 - K02.52)02/27/2025Major depressive disorder, recurrent episode, moderate with anxious distress (ICD-10 - F33.1)03/04/2025 Major depressive disorder, recurrent episode, moderate with anxious distress (ICD-10 - F33.1) Mood has room for improvement, will increase Wellbutrin to 300mg*. Discussed risks and side effectsof medication. Patient denies SI/HI today. Follow up if mood does not improve. Patient verbalized understanding. f/u in 1 month and PRN 02/14/2025ute gingivitis, plaque induced (ICD-10 - K05.00)02/14/2025racked tooth (ICD-10 - K03.81)03/04/2025nxiety, generalized (ICD-10 - F41.1) Anxiety stable but not well controlled Will trial Propranolol 10mg BID PRN F/U 1 month & PRN 02/14/2025Encounter for dental examination and cleaning with abnormal findings (ICD-10 - Z01.21)02/14/2025Other dental procedure status (ICD-10 - Z98.818) 02/14/2025Disturbances in tooth eruption (ICD-10 - K00.6) Plan Of Treatment Next Appt Details Provider Name:Paola lee, 03/27/2025 11:00:00 AM, [address] [place] [address], [id number], Provider Name:Megan mcdonnell, 04/17/2025 11:00:00 AM, [address], [place], [address], Provider Name:Naye Valenzuela, 06/2025 10:30:00 AM, [address], [place], [address], Provider Name:Naye Valenzuela, 09/2025 10:00:00 AM, [address], [place], [address], Provider Name:Naye Valenzuela, 01/2026 10:00:00 AM, [address], [place], [address], Provider Name:Naye Bianca, 09:30:00 AM, [address], [place], [address], Provider Name:Naye Valenzuela, 10:30:00 AM, [address], [place], [address], Provider Name:Paola Vadimrohan, 08/27/2025 10:00:00 AM, [address], [place], [address], Medical (General) History Medical History History ICD Code Asthma DepressionAnxietyHospitalization History Reason Date(Month/Year) Mental health x3
[2025-03-23 16:16] VITALS: O2SAT 97
== END 2025-03-23 16:16 | disposition home or self-care (01) ==
PROVIDERS: Emergency Provider Emergency Medicine
DX: J45.901 Unspecified asthma with (acute) exacerbation (principal)
CPT/HCPCS: 94640; 99284